=== PATIENT | male | born 1965 | race Caucasian/White ===

== ENCOUNTER 2016-10-13 02:07 | Inpatient (IN) | payer BC ==
[2016-10-13] MEDS ORDERED: Ondansetron 4 MG/2 ML SDV IVPUSH ONE ×2 (02:26→05:07)
[2016-10-13] MEDS ORDERED: Sodium Chloride 0.9% 1,000 ML IV ONE (02:26)
[2016-10-13] MEDS ORDERED: Ketorolac 30 MG/ML SDV IVPUSH ONE (02:26)
--- NOTE | 2016-10-13 02:29 | EDM.PDOC ---
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 Past medical history: As per history of present illness and as reviewed below otherwise noncontributory. Surgical history: As per history of present illness and as reviewed below otherwise noncontributory. Social history: No reported history of drug or alcohol abuse. Family history: As per history of present illness and as reviewed below otherwise noncontributory. Physical exam: HEENT: Atraumatic, normocephalic, pupils reactive, negative for conjunctival pallor or scleral icterus, mucous membranes moist, throat clear, neck supple, nontender, trachea midline. Lungs: Clear to auscultation, breath sounds equal bilaterally, chest nontender. Heart: S1S2, regular, negative for clicks, rubs, or JVD. Abdomen: Soft, nondistended, no localized tenderness. Negative for masses or hepatosplenomegaly. Negative for costovertebral tenderness. Pelvis: Stable nontender. Genitourinary: Deferred. Rectal: Deferred. Extremities: Atraumatic, negative for cords or calf pain. Neurovascular unremarkable. Neuro: Awake, alert, oriented. Cranial nerves II through XII unremarkable. Cerebellum unremarkable. Motor and sensory unremarkable throughout. Exam nonfocal. Diagnostics: CBC CMP amylase lipase troponin UA urine culture blood culture x2 lactic acid CT abdomen and pelvis chest x-ray EKG Therapeutics: Normal saline 1 L bolus Zofran 4 mg IV Toradol 30 mg IV Impression: #1 abdominal pain #2 history of multiple sclerosis Definitive disposition and diagnosis as appropriate pending reevaluation and review of above. 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: Other (see below) Other Treatments ACID CRANE OPERATOR: tramal @ 1am Abdominal Pain Score (Numeric/FACES): 6 - Related Data Allergies Allergy/AdvReac Type Severity Reaction Status Date / Time duloxetine HCl Allergy Mouth Sores Verified 10/13/16 02:11 [From Cymbalta] morphine Allergy Itching Verified 10/13/16 02:11 Sulfa (Sulfonamide Allergy Itching Verified 10/13/16 02:11 Antibiotics) Home Meds: Home Meds Baclofen [Lioresal] 10 mg PO TID 04/18/15 [History] Folic Acid 2 mg PO DAILY 04/18/15 [History] Gabapentin [Neurontin] 100 mg PO TID 04/18/15 [History] LORazepam [Ativan] 2 mg PO ASDIRECTED PRN 04/18/15 [History] Prochlorperazine [Compazine] 10 mg PO Q6H PRN 04/18/15 [History] FLUoxetine [PROzac] 20 mg PO DAILY 04/19/15 [History] Sildenafil Citrate [Viagra] 50 mg PO ASDIRECTED PRN 12/24/15 [History] Cyanocobalamin/FA/Pyridoxine [Folbee] 2.5 mg PO BID 01/11/16 [History] Fingolimod HCl [Gilenya] 1 tab PO DAILY 02/15/16 [History] Omeprazole Magnesium [Prilosec Otc] 1 tab PO DAILY 02/15/16 [History] Ascorbate Calcium [Vitamin C] 1 tab PO DAILY 02/20/16 [History] Ferrous Sulfate [Iron] 1 tab PO DAILY 02/20/16 [History] Lutein/Minerals/Vit A,C & E [Ocuvite] 1 tab PO DAILY 02/20/16 [History] Prochlorperazine [Compazine] 10 mg PO ASDIRECTED PRN 02/20/16 [History] traMADol [Ultram] 50 mg PO ASDIRECTED PRN 02/20/16 [History] Docusate Sodium [Colace] 100 mg PO BID #30 cap 02/24/16 [Rx] Past Medical History HEENT History: Reports: Impaired vision Other HEENT History: wears glasses Cardiovascular History: Reports: None Respiratory History: Reports: None Other Respiratory History: pneumonia Gastrointestinal History: Reports: None, Other (see below) Other Gastrointestinal History: rectal prolapse Genitourinary History: Reports: None Other Musculoskeletal History: trauma right knee with surgery Neurological History: Reports: MS Psychiatric History: Reports: Anxiety, Depression Endocrine/Metabolic History: Reports: None Hematologic History: Reports: None Immunologic History: Reports: None Oncologic (Cancer) History: Reports: None Dermatologic History: Reports: Psoriasis Other Dermatologic History: scalp - Infectious Disease History Infectious Disease History: Reports: Chicken pox - Past Surgical History Head Surgeries/Procedures: Reports: None Cardiovascular Surgical History: Reports: None GI Surgical History: Reports: Colon, Hernia, abdominal, Other (see below) Other GI Surgeries/Procedures: colon surgery Male Surgical History: Reports: None Neurological Surgical History: Reports: None Oncologic Surgical History: Reports: None Social & Family History - Family History Family Medical History: Noncontributory HEENT: Reports: None Cardiac: Reports: None - Tobacco Use Smoking Status *Q: Current Every Day Smoker Years of Tobacco use: 6 Packs/Tins Daily: 0.5 Second Hand Smoke Exposure: No - Caffeine Use Caffeine Use: Reports: Coffee - Recreational Drug Use Recreational Drug Use: No Drug Use in Last 12 Months: No ED ROS GENERAL - Review of Systems Review Of Systems: ROS reveals no pertinent complaints other than HPI. ED EXAM, GENERAL - Physical Exam Exam: See Below (See dictated) Course - Vital Signs Last Recorded V/S: Last Vital Signs Temp 36.7 C 10/13/16 04:32 Pulse 86 10/13/16 04:32 Resp 16 10/13/16 04:32 BP 133/86 10/13/16 04:32 Pulse Ox 97 10/13/16 04:32 - Orders/Labs/Meds Orders: Active Orders 24 hr Category Date Time Status Admission Status [Patient Status] [ADT] Stat ADT 10/13/16 05:07 Active EKG Documentation Completion [RC] STAT Care 10/13/16 02:25 Active Abdomen Pelvis wo Cont [CT] Stat Exams 10/13/16 02:26 Taken Chest 2V [CR] Stat Exams 10/13/16 02:26 Taken CULTURE BLOOD [BC] Stat Lab 10/13/16 03:00 Received CULTURE BLOOD [BC] Stat Lab 10/13/16 03:10 Received CULTURE URINE [RM] Stat Lab 10/13/16 03:36 Received Blood Culture x2 Reflex Set [OM.PC] Stat Oth 10/13/16 02:26 Ordered Medication Orders Sodium Chloride (Normal Saline) 1,000 mls @ 125 mls/hr IV ASDIRECTED EBER Last Admin: 10/13/16 05:17 Dose: 125 mls/hr Labs: Laboratory Tests 10/13/16 10/13/16 10/13/16 Range/Units 02:30 02:30 02:30 WBC 13.74 H (4.0-11.0) K/uL RBC 4.77 (4.50-5.90) M/uL Hgb 14.9 (13.0-17.0) g/dL Hct 43.3 (38.0-50.0) % MCV 90.8 (80.0-98.0) fL MCH 31.2 (27.0-32.0) pg MCHC 34.4 (31.0-37.0) g/dL RDW Std Deviation 43.0 (28.0-62.0) fl RDW Coeff of Berto 13 (11.0-15.0) % Plt Count 237 (150-400) K/uL MPV 9.20 (7.40-12.00) fL Neut % (Auto) 91.5 H (48.0-80.0) % Lymph % (Auto) 2.5 L (16.0-40.0) % Hand % (Auto) 5.5 (0.0-15.0) % Eos % (Auto) 0.4 (0.0-7.0) % Baso % (Auto) 0.1 (0.0-1.5) % Neut # 12.6 H (1.4-5.7) K/uL Lymph # 0.4 L (0.6-2.4) K/uL Hand # 0.8 (0.0-0.8) K/uL Eos # 0.1 (0.0-0.7) K/uL Baso # 0.0 (0.0-0.1) K/uL INR 0.97 (0.86-1.11) Lactate (0.20-2.00) mmol/L Sodium 133 L (136-146) mmol/L Potassium 4.1 (3.5-5.1) mmol/L Chloride 103 (98-110) mmol/L Carbon Dioxide 16 L (21-31) mmol/L BUN 20 (6.0-23.0) mg/dL Creatinine 0.8 (0.6-1.5) mg/dL Est Cr Clr Drug Dosing 111.70 mL/min Estimated GFR (MDRD) > 60.0 ml/min Glucose 164 H (60-110) mg/dL Calcium 9.1 (8.8-10.8) mg/dL Total Bilirubin 0.4 (0.1-1.5) mg/dL AST 34 (5-40) IU/L ALT 45 (8-54) IU/L Alkaline Phosphatase 80 (40-150) Troponin I (0.0-0.29) NG/ML Total Protein 7.2 (6.0-8.0) g/dL Albumin 4.4 (3.5-5.0) g/dL Globulin 2.8 (2.0-3.5) g/dL Albumin/Globulin Ratio 1.6 (1.3-2.8) Amylase 74 (10-90) U/L Lipase 17 (7-80) U/L Urine Color Urine Appearance Urine pH (5.0-8.0) Ur Specific Sutton (1.001-1.035) Urine Protein (NEGATIVE) mg/dL Urine Glucose (UA) (NEGATIVE) mg/dL Urine Ketones (NEGATIVE) mg/dL Urine Occult Blood (NEGATIVE) Urine Nitrite (NEGATIVE) Urine Bilirubin (NEGATIVE) Urine Urobilinogen (<2.0) EU/dL Ur Leukocyte Esterase (NEGATIVE) Urine RBC (0-2/HPF) Urine WBC (0-5/HPF) Ur Epithelial Cells (NONE-FEW) Urine Bacteria (NEGATIVE) Coarse Granular Casts (NEGATIVE) Urine Mucus (NONE-MOD) Urine Opiates Screen (NEGATIVE) Ur Oxycodone Screen (NEGATIVE) Urine Methadone Screen (NEGATIVE) Ur Barbiturates Screen (NEGATIVE) Ur Phencyclidine Scrn (NEGATIVE) Ur Amphetamine Screen (NEGATIVE) U Methamphetamines Scrn (NEGATIVE) U Benzodiazepines Scrn (NEGATIVE) U Cocaine Metab Screen (NEGATIVE) U Marijuana (THC) Screen (NEGATIVE) Blood Type Antibody Screen 10/13/16 10/13/16 10/13/16 Range/Units 02:30 02:30 03:00 WBC (4.0-11.0) K/uL RBC (4.50-5.90) M/uL Hgb (13.0-17.0) g/dL Hct (38.0-50.0) % MCV (80.0-98.0) fL MCH (27.0-32.0) pg MCHC (31.0-37.0) g/dL RDW Std Deviation (28.0-62.0) fl RDW Coeff of Berto (11.0-15.0) % Plt Count (150-400) K/uL MPV (7.40-12.00) fL Neut % (Auto) (48.0-80.0) % Lymph % (Auto) (16.0-40.0) % Hand % (Auto) (0.0-15.0) % Eos % (Auto) (0.0-7.0) % Baso % (Auto) (0.0-1.5) % Neut # (1.4-5.7) K/uL Lymph # (0.6-2.4) K/uL Hand # (0.0-0.8) K/uL Eos # (0.0-0.7) K/uL Baso # (0.0-0.1) K/uL INR (0.86-1.11) Lactate 0.9 (0.20-2.00) mmol/L Sodium (136-146) mmol/L Potassium (3.5-5.1) mmol/L Chloride (98-110) mmol/L Carbon Dioxide (21-31) mmol/L BUN (6.0-23.0) mg/dL Creatinine (0.6-1.5) mg/dL Est Cr Clr Drug Dosing mL/min Estimated GFR (MDRD) ml/min Glucose (60-110) mg/dL Calcium (8.8-10.8) mg/dL Total Bilirubin (0.1-1.5) mg/dL AST (5-40) IU/L ALT (8-54) IU/L Alkaline Phosphatase (40-150) Troponin I < 0.10 (0.0-0.29) NG/ML Total Protein (6.0-8.0) g/dL Albumin (3.5-5.0) g/dL Globulin (2.0-3.5) g/dL Albumin/Globulin Ratio (1.3-2.8) Amylase (10-90) U/L Lipase (7-80) U/L Urine Color Urine Appearance Urine pH (5.0-8.0) Ur Specific Sutton (1.001-1.035) Urine Protein (NEGATIVE) mg/dL Urine Glucose (UA) (NEGATIVE) mg/dL Urine Ketones (NEGATIVE) mg/dL Urine Occult Blood (NEGATIVE) Urine Nitrite (NEGATIVE) Urine Bilirubin (NEGATIVE) Urine Urobilinogen (<2.0) EU/dL Ur Leukocyte Esterase (NEGATIVE) Urine RBC (0-2/HPF) Urine WBC (0-5/HPF) Ur Epithelial Cells (NONE-FEW) Urine Bacteria (NEGATIVE) Coarse Granular Casts (NEGATIVE) Urine Mucus (NONE-MOD) Urine Opiates Screen (NEGATIVE) Ur Oxycodone Screen (NEGATIVE) Urine Methadone Screen (NEGATIVE) Ur Barbiturates Screen (NEGATIVE) Ur Phencyclidine Scrn (NEGATIVE) Ur Amphetamine Screen (NEGATIVE) U Methamphetamines Scrn (NEGATIVE) U Benzodiazepines Scrn (NEGATIVE) U Cocaine Metab Screen (NEGATIVE) U Marijuana (THC) Screen (NEGATIVE) Blood Type O NEGATIVE Antibody Screen NEGATIVE 10/13/16 10/13/16 Range/Units 03:36 03:36 WBC (4.0-11.0) K/uL RBC (4.50-5.90) M/uL Hgb (13.0-17.0) g/dL Hct (38.0-50.0) % MCV (80.0-98.0) fL MCH (27.0-32.0) pg MCHC (31.0-37.0) g/dL RDW Std Deviation (28.0-62.0) fl RDW Coeff of Berto (11.0-15.0) % Plt Count (150-400) K/uL MPV (7.40-12.00) fL Neut % (Auto) (48.0-80.0) % Lymph % (Auto) (16.0-40.0) % Hand % (Auto) (0.0-15.0) % Eos % (Auto) (0.0-7.0) % Baso % (Auto) (0.0-1.5) % Neut # (1.4-5.7) K/uL Lymph # (0.6-2.4) K/uL Hand # (0.0-0.8) K/uL Eos # (0.0-0.7) K/uL Baso # (0.0-0.1) K/uL INR (0.86-1.11) Lactate (0.20-2.00) mmol/L Sodium (136-146) mmol/L Potassium (3.5-5.1) mmol/L Chloride (98-110) mmol/L Carbon Dioxide (21-31) mmol/L BUN (6.0-23.0) mg/dL Creatinine (0.6-1.5) mg/dL Est Cr Clr Drug Dosing mL/min Estimated GFR (MDRD) ml/min Glucose (60-110) mg/dL Calcium (8.8-10.8) mg/dL Total Bilirubin (0.1-1.5) mg/dL AST (5-40) IU/L ALT (8-54) IU/L Alkaline Phosphatase (40-150) Troponin I (0.0-0.29) NG/ML Total Protein (6.0-8.0) g/dL Albumin (3.5-5.0) g/dL Globulin (2.0-3.5) g/dL Albumin/Globulin Ratio (1.3-2.8) Amylase (10-90) U/L Lipase (7-80) U/L Urine Color YELLOW Urine Appearance CLEAR Urine pH 5.0 (5.0-8.0) Ur Specific Sutton >= 1.030 (1.001-1.035) Urine Protein NEGATIVE (NEGATIVE) mg/dL Urine Glucose (UA) NEGATIVE (NEGATIVE) mg/dL Urine Ketones 15 H (NEGATIVE) mg/dL Urine Occult Blood NEGATIVE (NEGATIVE) Urine Nitrite NEGATIVE (NEGATIVE) Urine Bilirubin NEGATIVE (NEGATIVE) Urine Urobilinogen 0.2 (<2.0) EU/dL Ur Leukocyte Esterase NEGATIVE (NEGATIVE) Urine RBC 0-1 (0-2/HPF) Urine WBC 0-3 (0-5/HPF) Ur Epithelial Cells RARE (NONE-FEW) Urine Bacteria RARE (NEGATIVE) Coarse Granular Casts 0-1 (NEGATIVE) Urine Mucus LIGHT (NONE-MOD) Urine Opiates Screen POSITIVE (NEGATIVE) Ur Oxycodone Screen NEGATIVE (NEGATIVE) Urine Methadone Screen NEGATIVE (NEGATIVE) Ur Barbiturates Screen NEGATIVE (NEGATIVE) Ur Phencyclidine Scrn NEGATIVE (NEGATIVE) Ur Amphetamine Screen NEGATIVE (NEGATIVE) U Methamphetamines Scrn NEGATIVE (NEGATIVE) U Benzodiazepines Scrn NEGATIVE (NEGATIVE) U Cocaine Metab Screen NEGATIVE (NEGATIVE) U Marijuana (THC) Screen NEGATIVE (NEGATIVE) Blood Type Antibody Screen Meds: Medications Generic Name Dose Route Start Last Admin Trade Name Freq PRN Reason Stop Dose Admin Sodium Chloride 1,000 mls @ 125 mls/hr 10/13/16 05:15 10/13/16 05:17 Normal Saline IV 125 mls/hr ASDIRECTED EBER Administration Discontinued Medications Generic Name Dose Route Start Last Admin Trade Name Farzana PRN Reason Stop Dose Admin Hydromorphone HCl 1 mg 10/13/16 05:07 10/13/16 05:16 Dilaudid IVPUSH 10/13/16 05:08 1 mg ONETIME ONE Administration Sodium Chloride 1,000 mls @ 999 mls/hr 10/13/16 02:26 10/13/16 02:35 Normal Saline IV 10/13/16 03:26 999 mls/hr STAT ONE Administration Ketorolac Tromethamine 30 mg 10/13/16 02:26 10/13/16 02:33 Toradol IVPUSH 10/13/16 02:27 30 mg ONETIME ONE Administration Ondansetron HCl 4 mg 10/13/16 02:26 10/13/16 02:34 Zofran IVPUSH 10/13/16 02:27 4 mg ONETIME ONE Administration Ondansetron HCl 4 mg 10/13/16 05:07 10/13/16 05:16 Zofran IVPUSH 10/13/16 05:08 4 mg ONETIME ONE Administration Departure - Departure Time of Disposition: 05:23 Disposition: Admitted As Inpatient 68 Condition: good Clinical Impression: Abdominal pain, Leukocytosis - My Orders Last 24 Hours: My Active Orders 10/13/16 02:25 EKG Documentation Completion [RC] STAT 10/13/16 02:26 Abdomen Pelvis wo Cont [CT] Stat Chest 2V [CR] Stat Blood Culture x2 Reflex Set [OM.PC] Stat 10/13/16 03:00 CULTURE BLOOD [BC] Stat 10/13/16 03:10 CULTURE BLOOD [BC] Stat 10/13/16 03:36 CULTURE URINE [RM] Stat 10/13/16 05:07 Admission Status [Patient Status] [ADT] Stat - Assessment/Plan Last 24 Hours: My Active Orders 10/13/16 02:25 EKG Documentation Completion [RC] STAT 10/13/16 02:26 Abdomen Pelvis wo Cont [CT] Stat Chest 2V [CR] Stat Blood Culture x2 Reflex Set [OM.PC] Stat 10/13/16 03:00 CULTURE BLOOD [BC] Stat 10/13/16 03:10 CULTURE BLOOD [BC] Stat 10/13/16 03:36 CULTURE URINE [RM] Stat 10/13/16 05:07 Admission Status [Patient Status] [ADT] Stat
[2016-10-13 03:13] LABS: CHLORIDE,CL 103 mmol/L (98-110); SODIUM,NA 133 mmol/L (136-146)
[2016-10-13] MEDS ORDERED: HYDROmorphone 1 MG/ML Syringe IVPUSH ONE (05:07)
[2016-10-13] MEDS ORDERED: Sodium Chloride 0.9% 1,000 ML IV SCH (05:15)
[2016-10-13] MEDS ORDERED: Ciprofloxacin in D5W 400 MG in Premix Bag 1 BAG IV SCH ×2 (06:00)
[2016-10-13] MEDS: Sodium Chloride 0.45% 1,000 ML IV SCH ×2 (06:13→15:18)
[2016-10-13] MEDS ORDERED: metroNIDAZOLE/Normal Saline 500 MG in Premix Bag 1 BAG IV SCH (07:00)
[2016-10-13] MEDS ORDERED: Enoxaparin 40 MG/0.4 ML Syringe SUBCUT SCH (09:00)
[2016-10-13] MEDS: HYDROmorphone 1 MG/ML Syringe IVPUSH PRN ×4 (09:11→16:48)
--- NOTE | 2016-10-13 10:09 | PCM.HP ---
H&P History of Present Illness - General Date of Service: 10/13/16 Source of Information: Patient Abdominal Pain Score (Numeric/FACES): 1 - Related Data Allergies/Adverse Reactions: Allergies Allergy/AdvReac Type Severity Reaction Status Date / Time duloxetine HCl Allergy Mouth Sores Verified 10/13/16 02:11 [From Cymbalta] morphine Allergy Itching Verified 10/13/16 02:11 Sulfa (Sulfonamide Allergy Itching Verified 10/13/16 02:11 Antibiotics) Home Medications: Home Meds Baclofen [Lioresal] 10 mg PO TID 04/18/15 [History] Folic Acid 2 mg PO DAILY 04/18/15 [History] Gabapentin [Neurontin] 100 mg PO TID 04/18/15 [History] LORazepam [Ativan] 2 mg PO ASDIRECTED PRN 04/18/15 [History] Prochlorperazine [Compazine] 10 mg PO Q6H PRN 04/18/15 [History] FLUoxetine [PROzac] 20 mg PO DAILY 04/19/15 [History] Sildenafil Citrate [Viagra] 50 mg PO ASDIRECTED PRN 12/24/15 [History] Cyanocobalamin/FA/Pyridoxine [Folbee] 2.5 mg PO BID 01/11/16 [History] Fingolimod HCl [Gilenya] 1 tab PO DAILY 02/15/16 [History] Omeprazole Magnesium [Prilosec Otc] 1 tab PO DAILY 02/15/16 [History] Ascorbate Calcium [Vitamin C] 1 tab PO DAILY 02/20/16 [History] Ferrous Sulfate [Iron] 1 tab PO DAILY 02/20/16 [History] Lutein/Minerals/Vit A,C & E [Ocuvite] 1 tab PO DAILY 02/20/16 [History] Prochlorperazine [Compazine] 10 mg PO ASDIRECTED PRN 02/20/16 [History] traMADol [Ultram] 50 mg PO ASDIRECTED PRN 02/20/16 [History] Docusate Sodium [Colace] 100 mg PO BID #30 cap 02/24/16 [Rx] Past Medical History HEENT History: Reports: Impaired vision Other HEENT History: wears glasses Cardiovascular History: Reports: None Respiratory History: Reports: None Other Respiratory History: pneumonia Gastrointestinal History: Reports: None, Other (see below) Other Gastrointestinal History: rectal prolapse Genitourinary History: Reports: None Other Musculoskeletal History: trauma right knee with surgery Neurological History: Reports: MS Psychiatric History: Reports: Anxiety, Depression Endocrine/Metabolic History: Reports: None Hematologic History: Reports: None Immunologic History: Reports: None Oncologic (Cancer) History: Reports: None Dermatologic History: Reports: Psoriasis Other Dermatologic History: scalp - Infectious Disease History Infectious Disease History: Reports: Chicken pox - Past Surgical History Head Surgeries/Procedures: Reports: None Cardiovascular Surgical History: Reports: None GI Surgical History: Reports: Colon, Hernia, abdominal, Other (see below) Other GI Surgeries/Procedures: colon surgery Male Surgical History: Reports: None Neurological Surgical History: Reports: None Oncologic Surgical History: Reports: None Social & Family History - Family History Family Medical History: Noncontributory HEENT: Reports: None Cardiac: Reports: None - Tobacco Use Smoking Status *Q: Current Every Day Smoker Years of Tobacco use: 6 Packs/Tins Daily: 0.5 Second Hand Smoke Exposure: No - Caffeine Use Caffeine Use: Reports: Coffee, Soda - Recreational Drug Use Recreational Drug Use: No Drug Use in Last 12 Months: No Exam - Vital Signs Vital Signs: Last Vital Signs Temp 98.6 F 10/13/16 06:00 Pulse 64 10/13/16 05:52 Resp 18 10/13/16 06:00 BP 125/87 10/13/16 06:00 Pulse Ox 95 10/13/16 06:00 Weight: 78 kg - Patient Data Result Diagrams: 10/13/16 02:30 10/13/16 02:30 *Q Meaningful Use (ADM) - VTE *Q VTE Criteria *Q: - Stroke *Q Stroke Criteria *Q: - AMI *Q AMI Criteria *Q: Orders Last 24hrs: Active Orders 24 hr Category Date Time Status Activity as Tolerated [RC] .Routine Care 10/13/16 05:56 Active Ciprofloxacin in D5W [Cipro in D5W 400 MG/200 ML] 400 Med 10/13/16 06:00 Active mg Premix Bag 1 bag IV Q12H Enoxaparin [Lovenox] Med 10/13/16 09:00 Active 40 mg SUBCUT Q24H HYDROmorphone [Dilaudid] Med 10/13/16 07:00 Active 0.5 mg IVPUSH Q2H PRN Sodium Chloride 0.45% 1,000 ml Med 10/13/16 06:00 Active IV ASDIRECTED metroNIDAZOLE/Normal Saline [Flagyl 500 MG in NS 100 ML Med 10/13/16 07:00 Active ] 500 mg Premix Bag 1 bag IV Q8H Medication Orders Enoxaparin Sodium (Lovenox) 40 mg SUBCUT Q24H [facility] Last Admin: 10/13/16 09:12 Dose: 40 mg Hydromorphone HCl (Dilaudid) 0.5 mg IVPUSH Q2H PRN PRN Reason: Pain Last Admin: 10/13/16 09:11 Dose: 0.5 mg Ciprofloxacin/Dextrose 400 mg/ (Premix) 200 mls @ 200 mls/hr IV Q12H [facility] Last Admin: 10/13/16 06:13 Dose: 200 mls/hr Metronidazole 500 mg/ Premix 100 mls @ 100 mls/hr IV Q8H [facility] Last Admin: 10/13/16 07:28 Dose: 100 mls/hr Sodium Chloride (Sodium Chloride 0.45%) 1,000 mls @ 150 mls/hr IV ASDIRECTED [facility] Last Admin: 10/13/16 06:13 Dose: 150 mls/hr
[2016-10-13] MEDS ORDERED: Benzocaine 20% Topical Spray UD MUCMEM ONE (10:35)
--- NOTE | 2016-10-13 12:09 | PCM.CONS ---
Addendum entered and electronically signed by Lev Rodriguez MD 10/13/16 12: 53: Patient seen and examined with Dr. Schofield. He is well known to me from care throughout the years. Most recent procedures include sigmoid resection with primary anastomosis 02/24 and laparoscopic incisional hernia repain in [place] . Presented yesterday to ER with increasing abdominal pain and nausea but no vomiting. BM yesterday, none today. Did pass gas earlier this morning but none since about 0730 hours. Is required parenteral analgesics which also cause nausea. CT scan last night suggests an internal hernia. Preliminary report reviewed. Upon personal review of the CT scan, I agree it is worrisome for an internal hernia. WBC today 13K with 91% segs. Abdomen is soft and not distended but with hyperactive BS with high pitched bowel sounds. There is no rebound tenderness or peritoneal signs at this time. IMP: Probable partial small obstruction with possible internal hernia. RECOMMENDATIONS: Given his elevated WBC, persistent pain, lack of flatus or BM I recommend transfer to a facility that does bariatric surgery. It would be best to transfer him back to [facility] in [place] in the event that he requires surgical intervention. That was the last place he had a surgical procedure done. Original Note: H&P History of Present Illness - General Date of Service: 10/13/16 Admit Problem/Dx: Abdominal pain Source of Information: Patient History Limitations: Reports: No limitations - History of Present Illness Initial Comments - Free Text/Narative: Patient states he has been having pain since yesterday afternoon. THe pain is in the upper quadrants of the abdomen. The pain is sharp, progressive and no constant. He has nausea and dry heaves but no emesis. He is passing flatus and last BM was yesterday. He unable to tolerate PO intake. No fevers or chills. No previous episodes prior to this. PSH includes gastric bypass in 2004, inguinal hernia on the left, and ventral hernia repair recent at the end of . Ventral hernia was repaired with mesh. abdominal xray reveals air-fluild levels and CT scan of abdomen reveals dilated small bowel and normal colon. Patient last ate yesterday afternoon. Improves with: Reports: None Worsens with: Reports: None Associated Symptoms: Reports: no other symptoms Abdominal Pain Score (Numeric/FACES): 1 - Related Data Allergies/Adverse Reactions: Allergies Allergy/AdvReac Type Severity Reaction Status Date / Time duloxetine HCl Allergy Mouth Sores Verified 10/13/16 02:11 [From Cymbalta] morphine Allergy Itching Verified 10/13/16 02:11 Sulfa (Sulfonamide Allergy Itching Verified 10/13/16 02:11 Antibiotics) Home Medications: Home Meds Baclofen [Lioresal] 10 mg PO TID 04/18/15 [History] Folic Acid 2 mg PO DAILY 04/18/15 [History] Gabapentin [Neurontin] 100 mg PO TID 04/18/15 [History] LORazepam [Ativan] 2 mg PO ASDIRECTED PRN 04/18/15 [History] Prochlorperazine [Compazine] 10 mg PO Q6H PRN 04/18/15 [History] FLUoxetine [PROzac] 20 mg PO DAILY 04/19/15 [History] Sildenafil Citrate [Viagra] 50 mg PO ASDIRECTED PRN 12/24/15 [History] Cyanocobalamin/FA/Pyridoxine [Folbee] 2.5 mg PO BID 01/11/16 [History] Fingolimod HCl [Gilenya] 1 tab PO DAILY 02/15/16 [History] Omeprazole Magnesium [Prilosec Otc] 1 tab PO DAILY 02/15/16 [History] Ascorbate Calcium [Vitamin C] 1 tab PO DAILY 02/20/16 [History] Ferrous Sulfate [Iron] 1 tab PO DAILY 02/20/16 [History] Lutein/Minerals/Vit A,C & E [Ocuvite] 1 tab PO DAILY 02/20/16 [History] Prochlorperazine [Compazine] 10 mg PO ASDIRECTED PRN 02/20/16 [History] traMADol [Ultram] 50 mg PO ASDIRECTED PRN 02/20/16 [History] Docusate Sodium [Colace] 100 mg PO BID #30 cap 02/24/16 [Rx] Past Medical History HEENT History: Reports: Impaired vision Other HEENT History: wears glasses Cardiovascular History: Reports: None Respiratory History: Reports: None Other Respiratory History: pneumonia Gastrointestinal History: Reports: None, Other (see below) Other Gastrointestinal History: rectal prolapse Genitourinary History: Reports: None Other Musculoskeletal History: trauma right knee with surgery Neurological History: Reports: MS Psychiatric History: Reports: Anxiety, Depression Endocrine/Metabolic History: Reports: None Hematologic History: Reports: None Immunologic History: Reports: None Oncologic (Cancer) History: Reports: None Dermatologic History: Reports: Psoriasis Other Dermatologic History: scalp - Infectious Disease History Infectious Disease History: Reports: Chicken pox - Past Surgical History Head Surgeries/Procedures: Reports: None Cardiovascular Surgical History: Reports: None GI Surgical History: Reports: Colon, Hernia, abdominal, Other (see below) Other GI Surgeries/Procedures: colon surgery Male Surgical History: Reports: None Neurological Surgical History: Reports: None Oncologic Surgical History: Reports: None Social & Family History - Family History Family Medical History: Noncontributory HEENT: Reports: None Cardiac: Reports: None - Tobacco Use Smoking Status *Q: Current Every Day Smoker Years of Tobacco use: 6 Packs/Tins Daily: 0.5 Second Hand Smoke Exposure: No - Caffeine Use Caffeine Use: Reports: Coffee, Soda - Recreational Drug Use Recreational Drug Use: No Drug Use in Last 12 Months: No H&P Review of Systems - Review of Systems: Review Of Systems: See Below General: Reports: no symptoms HEENT: Reports: no symptoms Pulmonary: Reports: no symptoms Cardiovascular: Reports: no symptoms Gastrointestinal: Reports: Abdominal pain, Diarrhea, Decreased appetite, Flatus , Nausea, Other Genitourinary: Reports: no symptoms Musculoskeletal: Reports: no symptoms Skin: Reports: no symptoms Psychiatric: Reports: no symptoms (dry heaves ) Neurological: Reports: no symptoms Exam - Exam Exam: See Below - Vital Signs Vital Signs: Last Vital Signs Temp 37.0 C 10/13/16 06:00 Pulse 64 10/13/16 05:52 Resp 18 10/13/16 06:00 BP 125/87 10/13/16 06:00 Pulse Ox 95 10/13/16 06:00 Weight: 78 kg - Exam General: alert, oriented, cooperative Neck: trachea midline, full range of motion Lungs: Clear to auscultation, Normal respiratory effort Cardiovascular: regular rate, regular rhythm, normal S1, normal S2 Abdomen: soft, tenderness (tenderness in the upper quadrant more in the left; no guarding, no rebound tenderess, no peritoneal signs, mid line incision from previous surgery is well healed without signs of infection, [place]) (Male) Exam: No hernia, Normal inspection Extremities: normal inspection Peripheral Pulses: 2+: radial (L), radial (R), posterior tibial (L), posterior tibial (R), dorsalis pedis (L), dorsalis pedis (R) Skin: warm - Patient Data Result Diagrams: 10/13/16 02:30 10/13/16 02:30 Consult PN Assessment/Plan Procedures: Procedures COLONOSCOPY AND BIOPSY (01/12/16) COMPLETE CBC AUTOMATED (02/27/16) CT ABD & PELV W/CONTRAST (07/27/16) EMERGENCY DEPT VISIT (12/24/15) MRI ABDOMEN W/O & W/DYE (08/03/16) ROUTINE VENIPUNCTURE (02/27/16) THER/PROPH/DIAG INJ IV PUSH (12/24/15) (1) Abdominal pain SNOMED Code(s): 26855193 Code(s): R10.9 - UNSPECIFIED ABDOMINAL PAIN Current Visit: Yes Qualifiers: Abdominal location: upper abdomen, unspecified Qualified Code(s): R10.10 - Upper abdominal pain, unspecified Assessment:: Mr Larios is a 51 yro male with a h/o MS, previous gastric bypass, inguinal hernia repair, and recent ventral hernia repair with mesh in 08/2016, whom presents with abdominal pain and images suggestive of bowel obstruction possibly due internal hernia. Problem List Initiated/Reviewed/Updated: Yes Plan: 1. abdominal pain likely 2/2 internal hernia. Recommend the following - NPO - FLuid resuscitation - Daily labs for possible electrolyte imbalance - replace electrolyte PRN - if patient has increasing abdominal pain, N and V, recommend placement of NGT, confirmed with xray and on LWIS - For nausea: PRN zofran - if patient's pain does not resolve in 2-3 days, may consider possibly transfer to higher care facility. 2. Continue cares per primary team.
[2016-10-13] MEDS ORDERED: Ondansetron 4 MG/2 ML SDV IVPUSH PRN (12:42)
[2016-10-13] MEDS ORDERED: Ondansetron 4 MG/2 ML SDV ONE (12:46)
[2016-10-13 14:40] VITALS: BP 145/85
--- NOTE | 2016-10-13 18:34 | PCM.HP ---
H&P History of Present Illness - General Date of Service: 10/13/16 Admit Problem/Dx: abdominal pain Source of Information: Patient History Limitations: Reports: No limitations - History of Present Illness Initial Comments - Free Text/Narative: Patient 51 years old man presented to emergency room because of the abdomen .Pain started around 5 PM yesterday, it was severe 7 in 10 in intensity squeezing associated with nausea. The pain was localized on subdiaphragmatic left and right. And later the pain was localized mostly at the cystic point, was squeezing-like sensation .The patient had history of gastric bypass done in 2008 at [facility] now. Patient denies vomiting, no bowel movementssince yesterday morning , but was passing flatus this am . She had surgery for rectal prolapse on February 23/2016 and his sigmoid was removed. Surgery was done at [facility] [place] the fall of 2015 he developed the abdominal ventral hernia , the size of a softball and the he had the surgery on September 03 2016@[facility] in [facility] , was done laparoscopic, by Dr. Smith He was diagnosed with multiple sclerosis in 2005 and since he is on Gelenia which causes him to have a mild increase in his WBC as per patient. Onset of Symptoms: Reports: gradual Duration of Symptoms: Reports: Day(s): Location: Reports: abdomen Quality: Reports: Other (squeezing) Abdominal Pain Score (Numeric/FACES): 1 - Related Data Allergies/Adverse Reactions: Allergies Allergy/AdvReac Type Severity Reaction Status Date / Time duloxetine HCl Allergy Mouth Sores Verified 10/13/16 02:11 [From Cymbalta] morphine Allergy Itching Verified 10/13/16 02:11 Sulfa (Sulfonamide Allergy Itching Verified 10/13/16 02:11 Antibiotics) Home Medications: Home Meds Baclofen [Lioresal] 10 mg PO TID 04/18/15 [History] Folic Acid 2 mg PO DAILY 04/18/15 [History] Gabapentin [Neurontin] 100 mg PO TID 04/18/15 [History] LORazepam [Ativan] 2 mg PO ASDIRECTED PRN 04/18/15 [History] Prochlorperazine [Compazine] 10 mg PO Q6H PRN 04/18/15 [History] FLUoxetine [PROzac] 20 mg PO DAILY 04/19/15 [History] Sildenafil Citrate [Viagra] 50 mg PO ASDIRECTED PRN 12/24/15 [History] Cyanocobalamin/FA/Pyridoxine [Folbee] 2.5 mg PO BID 01/11/16 [History] Fingolimod HCl [Gilenya] 1 tab PO DAILY 02/15/16 [History] Omeprazole Magnesium [Prilosec Otc] 1 tab PO DAILY 02/15/16 [History] Ascorbate Calcium [Vitamin C] 1 tab PO DAILY 02/20/16 [History] Ferrous Sulfate [Iron] 1 tab PO DAILY 02/20/16 [History] Lutein/Minerals/Vit A,C & E [Ocuvite] 1 tab PO DAILY 02/20/16 [History] Prochlorperazine [Compazine] 10 mg PO ASDIRECTED PRN 02/20/16 [History] traMADol [Ultram] 50 mg PO ASDIRECTED PRN 02/20/16 [History] Docusate Sodium [Colace] 100 mg PO BID #30 cap 02/24/16 [Rx] Past Medical History HEENT History: Reports: Impaired vision Other HEENT History: wears glasses Cardiovascular History: Reports: None Respiratory History: Reports: None Other Respiratory History: pneumonia Gastrointestinal History: Reports: None, Other (see below) Other Gastrointestinal History: rectal prolapse Genitourinary History: Reports: None Other Musculoskeletal History: trauma right knee with surgery Neurological History: Reports: MS Psychiatric History: Reports: Anxiety, Depression Endocrine/Metabolic History: Reports: None Hematologic History: Reports: None Immunologic History: Reports: None Oncologic (Cancer) History: Reports: None Dermatologic History: Reports: Psoriasis Other Dermatologic History: scalp - Infectious Disease History Infectious Disease History: Reports: Chicken pox - Past Surgical History Head Surgeries/Procedures: Reports: None Cardiovascular Surgical History: Reports: None GI Surgical History: Reports: Colon, Hernia, abdominal, Other (see below) Other GI Surgeries/Procedures: colon surgery Male Surgical History: Reports: None Neurological Surgical History: Reports: None Oncologic Surgical History: Reports: None Social & Family History - Family History Family Medical History: Noncontributory HEENT: Reports: None Cardiac: Reports: None - Tobacco Use Smoking Status *Q: Current Every Day Smoker Years of Tobacco use: 6 Packs/Tins Daily: 0.5 Second Hand Smoke Exposure: No - Caffeine Use Caffeine Use: Reports: Coffee, Soda - Recreational Drug Use Recreational Drug Use: No Drug Use in Last 12 Months: No H&P Review of Systems - Review of Systems: Review Of Systems: See Below General: Reports: no symptoms HEENT: Reports: no symptoms Pulmonary: Reports: no symptoms Cardiovascular: Reports: no symptoms Gastrointestinal: Reports: Abdominal pain, Flatus, Nausea Genitourinary: Reports: no symptoms Musculoskeletal: Reports: no symptoms Skin: Reports: no symptoms Psychiatric: Reports: no symptoms Neurological: Reports: no symptoms Hematologic/Lymphatic: Reports: no symptoms Immunologic: Reports: no symptoms Exam - Exam Exam: See Below - Vital Signs Vital Signs: Last Vital Signs Temp 99.2 F 10/13/16 14:35 Pulse 90 10/13/16 14:35 Resp 16 10/13/16 14:35 BP 145/85 H 10/13/16 14:35 Pulse Ox 95 10/13/16 14:35 Weight: 171 lb 15.369 oz - Exam General: alert, oriented HEENT: Conjunctiva clear, EACs clear, Hearing intact, Mucosa moist & pink Neck: supple, trachea midline Lungs: Clear to auscultation, Normal respiratory effort Cardiovascular: regular rate, regular rhythm, normal S1, normal S2 Abdomen: hyperactive bowel sounds. No: organomegaly, peritoneal signs, distention, guarding, rigidity, rebound - Patient Data Result Diagrams: 10/13/16 02:30 10/13/16 02:30 EKG INTERPRETATION EKG Date: 10/13/16 Rhythm: NSR *Q Meaningful Use (ADM) - VTE *Q VTE Criteria *Q: - Stroke *Q Stroke Criteria *Q: - AMI *Q AMI Criteria *Q: - Problem List (1) Internal hernia SNOMED Code(s): 62243499 ICD Code: K45.8 - OTH ABDOMINAL HERNIA WITHOUT OBSTRUCTION OR GANGRENE Status: Acute (2) Multiple sclerosis SNOMED Code(s): 08715005 ICD Code: G35 - MULTIPLE SCLEROSIS Status: Acute (3) Abdominal pain SNOMED Code(s): 89911454 ICD Code: R10.9 - UNSPECIFIED ABDOMINAL PAIN Status: Acute Qualifiers: Abdominal location: upper abdomen, unspecified Qualified Code(s): R10.10 - Upper abdominal pain, unspecified (4) Leukocytosis SNOMED Code(s): 561655252, 676228185 ICD Code: D72.829 - ELEVATED WHITE BLOOD CELL COUNT, UNSPECIFIED Status: Acute (5) Status post colon resection SNOMED Code(s): 506129296, 30143666, 169377273 ICD Code: Z90.49 - ACQUIRED ABSENCE OF OTHER SPECIFIED PARTS OF DIGESTIVE TRACT Status: Acute (6) Complications of gastric bypass surgery SNOMED Code(s): 34297361 ICD Code: K91.89 - OTH POSTPROCEDURAL COMPLICATIONS AND DISORDERS OF DGSTV SYS; Y83.2 - ANASTOMOS,BYPASS OR GRFT CAUSE ABN REACT/COMPL, W/O MISADVNT Status: Acute (7) Status post repair of ventral hernia SNOMED Code(s): 308923079 ICD Code: Z98.890 - OTHER SPECIFIED POSTPROCEDURAL STATES; Z87.19 - PERSONAL HISTORY OF OTHER DISEASES OF THE DIGESTIVE SYSTEM Status: Acute Problem List Initiated/Reviewed/Updated: Yes Orders Last 24hrs: Active Orders 24 hr Category Date Time Status Activity as Tolerated [RC] .Routine Care 10/13/16 05:56 Active Nasogastric Tube Management [Gastrointestinal Tube Mgmt Care 10/13/16 10:34 Active ] [RC] ASDIRECTED Ready for Discharge [RC] PER UNIT ROUTINE Care 10/13/16 17:42 Active Ciprofloxacin in D5W [Cipro in D5W 400 MG/200 ML] 400 Med 10/13/16 06:00 Active mg Premix Bag 1 bag IV Q12H Enoxaparin [Lovenox] Med 10/13/16 09:00 Active 40 mg SUBCUT Q24H HYDROmorphone [Dilaudid] Med 10/13/16 07:00 Active 0.5 mg IVPUSH Q2H PRN Ondansetron [Zofran] Med 10/13/16 12:42 Active 4 mg IVPUSH Q6H PRN Sodium Chloride 0.45% 1,000 ml Med 10/13/16 06:00 Active IV ASDIRECTED metroNIDAZOLE/Normal Saline [Flagyl 500 MG in NS 100 ML Med 10/13/16 07:00 Active ] 500 mg Premix Bag 1 bag IV Q8H Nasogastric Orogastric Tube Insertion [OM.PC] Stat Oth 10/13/16 10:33 Ordered Medication Orders Enoxaparin Sodium (Lovenox) 40 mg SUBCUT Q24H [facility] Last Admin: 10/13/16 09:12 Dose: 40 mg Hydromorphone HCl (Dilaudid) 0.5 mg IVPUSH Q2H PRN PRN Reason: Pain Last Admin: 10/13/16 16:48 Dose: 0.5 mg Admin: 10/13/16 14:32 Dose: 0.5 mg Admin: 10/13/16 11:41 Dose: 0.5 mg Admin: 10/13/16 09:11 Dose: 0.5 mg Ciprofloxacin/Dextrose 400 mg/ (Premix) 200 mls @ 200 mls/hr IV Q12H [facility] Last Admin: 10/13/16 06:13 Dose: 200 mls/hr Metronidazole 500 mg/ Premix 100 mls @ 100 mls/hr IV Q8H [facility] Last Admin: 10/13/16 07:28 Dose: 100 mls/hr Sodium Chloride (Sodium Chloride 0.45%) 1,000 mls @ 150 mls/hr IV ASDIRECTED [facility] Last Admin: 10/13/16 15:18 Dose: 150 mls/hr Infusion: 10/13/16 12:54 Dose: 150 mls/hr Admin: 10/13/16 06:13 Dose: 150 mls/hr Ondansetron HCl (Zofran) 4 mg IVPUSH Q6H PRN PRN Reason: Nausea/Vomiting Last Admin: 10/13/16 12:48 Dose: [address] of the abdomen showed dilated small bowel loops measure up to 3.5 cm . There is swirling of the mesentery in the right mid abdomen. It begins of RDS and bowel wall thickening and mesenteric edema. Findings worrisome for small bowel obstruction possible internal hernia. Assessment and plan Abdominal pain possible internal hernia - will admit patient to [facility] , surgery consult , will start patient on prophylactic antib treatment , metronidazole and ciprofloxacin serial abdominal exam Multiple sclerosis - stable -continue patient on Gelenia. DVt prof - heparin sq DISCARGE summary Patient had surgery consult and was recommended patient to be transferred to a center where they have Bariatric Surgery. His abdominal pain was progressively worsening. I have called [facility] and and there was no bariatric surgeon front facer. I was recommended by Dr. Tai surgeon front facer at [facility] in [facility] to call [facility] to see if they have Bariatric surgeon front facer. At [facility] I was told there is no bariatric surgeon front facer and the surgeon front facer recommended me to call [facility] in [place]. I have discussed patient with Bariatric surgeon front facer at [facility] in [place] , Dr. Truman Vazquez and he recommended to sent him his CT abdomen to review through [facility]. He reviewed it and recommended patient transfer by helicopter . Patient agree with transfer and was transfered around 4 pm to [facility]
--- NOTE | 2016-10-15 17:17 | CR ---
EXAM DATE: 10/13/16 PATIENT'S AGE: 51 Patient: VINNY GIBSON Facility: [place], [place] Site . Site : 1965 Study: XRay Chest [id number]/4/2017 3:33:22 AM Ordering Physician: Kelvin Brandt Final Report: INDICATION: PAIN TECHNIQUE: Chest 2 views. COMPARISON: 04/18/15 FINDINGS: Cardiovascular and mediastinum: Heart size and vasculature are normal in caliber and appearance. Mediastinum is within normal limits. Lungs and pleural spaces: Lungs are clear. No sign of infiltrate or mass. No sign of pleural effusion. No pneumothorax. Bones and soft tissues: No significant findings. IMPRESSION: Unremarkable chest. Dictated by: Hipolito Barnett MD @ 10/13/2016 03:38:59 (Electronic Signature) Report Signed by Proxy and Original Signed Document filed in the Medical Record. [facility]
--- NOTE | 2016-10-17 19:01 | CT ---
EXAM DATE: 10/13/16 PATIENT'S AGE: 51 Patient: VINNY GIBSON Facility: [facility] Site . Site : 1965 Study: CT-Abdomen/Pelvis [id number]/4/2017 3:39:06 AM Ordering Physician: Kelvin Brandt Final Report: INDICATION: Abdominal pain. Status post mesh placement 1 month prior TECHNIQUE: CT abdomen and pelvis without contrast. COMPARISON: FINDINGS: Lower chest: Unremarkable. Liver: Unremarkable. Spleen: Unremarkable. Pancreas: Unremarkable. Gallbladder and bile ducts: Unremarkable. Kidneys: Unremarkable. No kidney or ureteral stones and no hydronephrosis. Adrenal glands: Unremarkable. GI tract: Status small bowel loops measure up to 3.5 centimeters. Swirling of the small bowel mesentery in the right mid abdomen with thickening of adjacent bowel loops and mesenteric edema. Findings worrisome for small bowel obstruction with possible internal hernia. Evidence of prior gastric bypass surgery. Hiatal hernia. Appendix is not visualized. Vascular structures: Unremarkable. Lymph nodes: Unremarkable. Miscellaneous: Unremarkable. No free air. Small amount of low-density free fluid around the liver, left pericolic gutter and pelvis. Pelvic Organs: Unremarkable. Bones: Unremarkable for age. IMPRESSION: Dilated small bowel loops measure up to 3.5 centimeters. There is swirling of the mesentery in the right mid abdomen. Evidence of adjacent bowel wall thickening and mesenteric edema. Findings worrisome for small bowel obstruction possible internal hernia. Findings discussed with Dr. Warren on 10/13/2016 at 3:47 a.m.. tt/Dictated by: Hipolito Barnett MD @ 10/13/2016 3:48:00 AM Signed by: Hipolito Barnett MD @10/17/2016 6:02:23 PM (Electronic Signature) Report Signed by Proxy and Original Signed Document filed in the Medical Record. [facility]
== END 2016-10-13 16:55 | disposition home or self-care (01) | DRG 254 ==
LOC: MW.ED 02:07 → MW.MS 05:09 → OBSVTOIN 05:24 → MW.MS 05:37
PROVIDERS: ADMIT Internal Medicine; ATTEND Internal Medicine
DX: K45.8 Other specified abdominal hernia without obstruction or gangrene (principal); G35 Multiple sclerosis; R10.9 Unspecified abdominal pain; D72.829 Elevated white blood cell count, unspecified; K91.89 Other postprocedural complications and disorders of digestive system; F41.8 Other specified anxiety disorders; F17.200 Nicotine dependence, unspecified, uncomplicated; Z90.49 Acquired absence of other specified parts of digestive tract; Z98.890 Other specified postprocedural states; Z87.19 Personal history of other diseases of the digestive system; Z88.8 Allergy status to other drugs, medicaments and biological substances; Z79.899 Other long term (current) drug therapy
CPT/HCPCS: 36415; 71020; 71020-26; 74176; 74176-26; 80053; 80305; 81001; 82150; 83605; 83690; 84484; 85025; 85610; 86850; 86900; 86901; 87040; 87086; 93005; 96361; 96374; 96375; 99285; 99285-25; J0744; J1170; J1650; J1885; J2405; J7030; J7040

== ENCOUNTER 2020-03-31 12:06 | Emergency (ER) | payer BC ==
[2020-03-31] MEDS ORDERED: Sodium Chloride 0.9% 10 ML Syringe FLUSH PRN (12:08)
[2020-03-31] MEDS ORDERED: Sodium Chloride 0.9% 2.5 ML Syringe FLUSH PRN (12:08)
--- NOTE | 2020-03-31 12:12 | EDM.PDOC ---
ED HPI GENERAL MEDICAL PROBLEM - General Chief Complaint: Neurological Problem Stated Complaint: AMS Time Seen by Provider: 03/31/20 12:07 - History of Present Illness INITIAL COMMENTS - FREE TEXT/NARRATIVE: History of present illness: Patient presents via EMS after a witnessed seizure that lasted approximately 2 minutes patient has no prior history of seizure disorder patient does not recall the events patient states now he feels fine back to his normal baseline status he denies any injuries has no headache no chest pain no trouble breathing. He is at his baseline mental status at this time. Review of systems: As per history of present illness and below otherwise all systems reviewed and negative. Past medical history: As per history of present illness and as reviewed below otherwise noncontributory. Surgical history: As per history of present illness and as reviewed below otherwise noncontributory. Social history: No reported history of drug or alcohol abuse. Family history: As per history of present illness and as reviewed below otherwise noncontributory. Physical exam: HEENT: Atraumatic, normocephalic, pupils reactive, negative for conjunctival pallor or scleral icterus, mucous membranes moist, throat clear, neck supple, nontender, trachea midline. Lungs: Clear to auscultation, breath sounds equal bilaterally, chest nontender. Heart: S1S2, regular, negative for clicks, rubs, or JVD. Abdomen: Soft, nondistended, nontender. Negative for masses or hepatosplenomegaly. Negative for costovertebral tenderness. Pelvis: Stable nontender. Genitourinary: Deferred. Rectal: Deferred. Extremities: Atraumatic, negative for cords or calf pain. Neurovascular unremarkable. Neuro: Awake, alert, oriented. Cranial nerves II through XII unremarkable. Cerebellum unremarkable. Motor and sensory unremarkable throughout. Exam nonfocal. Diagnostics: [] Therapeutics: [] Impression: Seizure Plan: Labs CT head reassess the patient. [] Definitive disposition and diagnosis as appropriate pending reevaluation and review of above. - Related Data Allergies Allergy/AdvReac Type Severity Reaction Status Date / Time duloxetine HCl Allergy Mouth Sores Verified 03/31/20 12:12 [From Cymbalta] morphine Allergy Itching Verified 03/31/20 12:12 Sulfa (Sulfonamide Allergy Itching Verified 03/31/20 12:12 Antibiotics) Home Meds: Home Meds Baclofen [Lioresal] 10 mg PO TID 04/18/15 [History] Folic Acid 2 mg PO DAILY 04/18/15 [History] Gabapentin [Neurontin] 100 mg PO TID 04/18/15 [History] LORazepam [Ativan] 2 mg PO ASDIRECTED PRN 04/18/15 [History] Prochlorperazine [Compazine] 10 mg PO Q6H PRN 04/18/15 [History] FLUoxetine [PROzac] 20 mg PO DAILY 04/19/15 [History] Sildenafil Citrate [Viagra] 50 mg PO ASDIRECTED PRN 12/24/15 [History] Cyanocobalamin/Folic AC/Vit B6 [Folbee] 2.5 mg PO BID 01/11/16 [History] Fingolimod HCl [Gilenya] 1 tab PO DAILY 02/15/16 [History] Omeprazole Magnesium [Prilosec Otc] 1 tab PO DAILY 02/15/16 [History] Ascorbate Calcium [Vitamin C] 1 tab PO DAILY 02/20/16 [History] Ferrous Sulfate [Iron] 1 tab PO DAILY 02/20/16 [History] Lutein/Minerals/Vit A,C & E [Ocuvite] 1 tab PO DAILY 02/20/16 [History] Prochlorperazine [Compazine] 10 mg PO ASDIRECTED PRN 02/20/16 [History] traMADol [Ultram] 50 mg PO ASDIRECTED PRN 02/20/16 [History] Docusate Sodium [Colace] 100 mg PO BID #30 cap 02/24/16 [Rx] Past Medical History HEENT History: Reports: Impaired Vision Other HEENT History: wears glasses Cardiovascular History: Reports: None Respiratory History: Reports: None Other Respiratory History: pneumonia Gastrointestinal History: Reports: Other (See Below) Other Gastrointestinal History: rectal prolapse Genitourinary History: Reports: None Other Musculoskeletal History: trauma right knee with surgery Neurological History: Reports: MS Psychiatric History: Reports: Anxiety, Depression Endocrine/Metabolic History: Reports: None Hematologic History: Reports: None Immunologic History: Reports: None Oncologic (Cancer) History: Reports: None Dermatologic History: Reports: Psoriasis Other Dermatologic History: scalp - Infectious Disease History Infectious Disease History: Reports: Chicken Pox - Past Surgical History GI Surgical History: Reports: Bariatric Procedure, Colon, Hernia, Abdominal, Other (See Below) Musculoskeletal Surgical History: Reports: Arthroscopic Knee Social & Family History - Family History Family Medical History: Noncontributory HEENT: Reports: None Cardiac: Reports: None - Caffeine Use Caffeine Use: Reports: Coffee, Soda ED ROS GENERAL - Review of Systems Review Of Systems: See Below ED EXAM, GENERAL - Physical Exam Exam: See Below EKG INTERPRETATION EKG Interpretation Comments: EKG is normal sinus rhythm sinus tachycardia at 110 bpm no ischemic changes otherwise normal EKG QT interval is 353 Course - Vital Signs Text/Narrative:: Patient was reexamined at 1:15 PM he is perfectly alert and oriented to person place and time at this point vital signs are stable he has had no further seizure activity in the ED he was counseled on safety precautions no driving bathing swimming so forth will be referred to neurology. He is negative lab studies are unremarkable discharge home Last Recorded V/S: Last Vital Signs Temp 35.7 C L 03/31/20 12:08 Pulse 108 H 03/31/20 12:08 Resp 20 03/31/20 12:08 BP 145/95 H 03/31/20 12:08 Pulse Ox 94 L 03/31/20 12:08 - Orders/Labs/Meds Orders: Active Orders 24 hr Category Date Time Status Blood Glucose Check, Bedside [RC] ONETIME Care 03/31/20 12:08 Active Cardiac Monitoring [RC] . DIRECTED Care 03/31/20 12:08 Active EKG Documentation Completion [RC] STAT Care 03/31/20 12:08 Active Pulse Oximetry [RC] ASDIRECTED Care 03/31/20 12:08 Active Sodium Chloride 0.9% [Saline Flush] Med 03/31/20 12:08 Active 10 ml FLUSH ASDIRECTED PRN Sodium Chloride 0.9% [Saline Flush] Med 03/31/20 12:08 Active 2.5 ml FLUSH ASDIRECTED PRN Saline Lock Insert [OM.PC] Stat Oth 03/31/20 12:08 Ordered Medication Orders Sodium Chloride (Saline Flush) 10 ml FLUSH ASDIRECTED PRN PRN Reason: Keep Vein Open Last Admin: 03/31/20 12:20 Dose: 10 ml Documented by: [id number] Sodium Chloride (Saline Flush) 2.5 ml FLUSH ASDIRECTED PRN PRN Reason: Keep Vein Open Last Admin: 03/31/20 12:20 Dose: 2.5 ml Documented by: [id number] Labs: Laboratory Tests 03/31/20 03/31/20 Range/Units 12:05 12:05 WBC 8.80 (4.0-11.0) K/uL RBC 4.84 (4.50-5.90) M/uL Hgb 15.2 (13.0-17.0) g/dL Hct 45.5 (38.0-50.0) % MCV 94.0 (80.0-98.0) fL MCH 31.4 (27.0-32.0) pg MCHC 33.4 (31.0-37.0) g/dL RDW Std Deviation 45.7 (28.0-62.0) fl RDW Coeff of Berto 13 (11.0-15.0) % Plt Count 299 (150-400) K/uL MPV 9.10 (7.40-12.00) fL Neut % (Auto) 73.4 (48.0-80.0) % Lymph % (Auto) 17.7 (16.0-40.0) % [place] % (Auto) 8.0 (0.0-15.0) % Eos % (Auto) 0.7 (0.0-7.0) % Baso % (Auto) 0.2 (0.0-1.5) % Neut # (Auto) 6.5 H (1.4-5.7) K/uL Lymph # (Auto) 1.6 (0.6-2.4) K/uL [place] # (Auto) 0.7 (0.0-0.8) K/uL Eos # (Auto) 0.1 (0.0-0.7) K/uL Baso # (Auto) 0.0 (0.0-0.1) K/uL Nucleated RBC % 0.0 /100WBC Nucleated RBCs # 0 K/uL Sodium 136 (136-148) mmol/L Potassium 3.8 (3.5-5.1) mmol/L Chloride 96 L (98-107) mmol/L Carbon Dioxide 13.8 L (21.0-32.0) mmol/L BUN 11 (7.0-18.0) mg/dL Creatinine 1.3 (0.8-1.3) mg/dL Est Cr Clr Drug Dosing 66.47 mL/min Estimated GFR (MDRD) 58.0 ml/min Glucose 152 H (74-106) mg/dL Calcium 9.7 (8.5-10.1) mg/dL Total Bilirubin 0.7 (0.2-1.0) mg/dL AST 43 H (15-37) IU/L ALT 46 (14-63) IU/L Alkaline Phosphatase 100 (46-116) U/L Total Protein 7.9 (6.4-8.2) g/dL Albumin 4.7 (3.4-5.0) g/dL Globulin 3.2 (2.6-4.0) g/dL Albumin/Globulin Ratio 1.5 (0.9-1.6) Meds: Medications Generic Name Dose Route Start Last Admin Trade Name Freq PRN Reason Stop Dose Admin Sodium Chloride 10 ml 03/31/20 12:08 03/31/20 12:20 Saline Flush FLUSH 10 ml ASDIRECTED PRN Administration Keep Vein Open Sodium Chloride 2.5 ml 03/31/20 12:08 03/31/20 12:20 Saline Flush FLUSH 2.5 ml ASDIRECTED PRN Administration Keep Vein Open Departure - Departure Time of Disposition: 13:16 Disposition: Home, Self-Care 01 Condition: Good Clinical Impression: Seizure - Discharge Information *PRESCRIPTION DRUG MONITORING PROGRAM REVIEWED*: Not Applicable *COPY OF PRESCRIPTION DRUG MONITORING REPORT IN PATIENT MARIAELENA: Not Applicable Instructions: Seizure, Adult, [id number] Referrals: PCP,None [Primary Care Provider] - Forms: ED Department Discharge Additional Instructions: The following information is given to patients seen in the emergency department who are being discharged to home. This information is to outline your options for follow-up care. We provide all patients seen in our emergency department with a follow-up referral. The need for follow-up, as well as the timing and circumstances, are variable depending upon the specifics of your emergency department visit. If you don't have a primary care physician on staff, we will provide you with a referral. We always advise you to contact your personal physician following an emergency department visit to inform them of the circumstance of the visit and for follow-up with them and/or the need for any referrals to a consulting specialist. The emergency department will also refer you to a specialist when appropriate. This referral assures that you have the opportunity for follow-up care with a specialist. All of these measure are taken in an effort to provide you with optimal care, which includes your follow-up. Under all circumstances we always encourage you to contact your private physician who remains a resource for coordinating your care. When calling for follow-up care, please make the office aware that this follow-up is from your recent emergency room visit. If for any reason you are refused follow-up, please contact the [facility] Emergency Department at and asked to speak to the emergency department charge nurse. [facility] [address] [place] [address], [address] [place] [address] Sepsis Event Note (ED) - Focused Exam Vital Signs: Vital Signs Temp Pulse Resp BP Pulse Ox 03/31/20 12:08 35.7 C L 108 H 20 145/95 H 94 L - My Orders Last 24 Hours: My Active Orders 03/31/20 12:08 Blood Glucose Check, Bedside [RC] ONETIME Cardiac Monitoring [RC] . DIRECTED EKG Documentation Completion [RC] STAT Pulse Oximetry [RC] ASDIRECTED Sodium Chloride 0.9% [Saline Flush] 10 ml FLUSH ASDIRECTED PRN Sodium Chloride 0.9% [Saline Flush] 2.5 ml FLUSH ASDIRECTED PRN Saline Lock Insert [OM.PC] Stat - Assessment/Plan Last 24 Hours: My Active Orders 03/31/20 12:08 Blood Glucose Check, Bedside [RC] ONETIME Cardiac Monitoring [RC] . DIRECTED EKG Documentation Completion [RC] STAT Pulse Oximetry [RC] ASDIRECTED Sodium Chloride 0.9% [Saline Flush] 10 ml FLUSH ASDIRECTED PRN Sodium Chloride 0.9% [Saline Flush] 2.5 ml FLUSH ASDIRECTED PRN Saline Lock Insert [OM.PC] Stat
[2020-03-31 12:50] LABS: CARBON DIOXIDE,CO2 13.8 mmol/L (21.0-32.0); POTASSIUM,K 3.8 mmol/L (3.5-5.1)
--- NOTE | 2020-03-31 12:50 | CT ---
Head CT Technique: Multiple axial sections through the brain were obtained. Intravenous contrast was not utilized. Comparison: Prior MRI brain of 11/06/19. Findings: Ventricles along with basal cisterns and sulci over the convexities are within normal limits for the patient's age. No abnormal parenchymal densities are seen. No evidence of intracranial hemorrhage. No midline shift or mass-effect is seen. Bone window settings were reviewed which shows no acute calvarial finding. Visualized mastoid sinuses and visualized paranasal sinuses show nothing acute. Impression: 1. Nothing acute is appreciated on noncontrast head CT exam. Diagnostic code #1 This report was dictated in MDT
[2020-03-31 13:26] VITALS: BP 140/90; PULSE 96
== END 2020-03-31 13:26 | disposition home or self-care (01) ==
LOC: MW.ED 12:06
DX: R56.9 Unspecified convulsions (principal); G35 Multiple sclerosis; F41.9 Anxiety disorder, unspecified; F32.9 Major depressive disorder, single episode, unspecified; Z88.2 Allergy status to sulfonamides; Z88.8 Allergy status to other drugs, medicaments and biological substances; Z87.891 Personal history of nicotine dependence; Z79.899 Other long term (current) drug therapy; Z88.5 Allergy status to narcotic agent
CPT/HCPCS: 36415; 70450; 70450-26; 80053; 85025; 93005; 99285-25

== ENCOUNTER 2020-06-17 11:02 | Emergency (ER) | payer MEDICARE, BC ==
[2020-06-17] MEDS ORDERED: Sodium Chloride 0.9% 1,000 ML IV ONE (11:09)
[2020-06-17] MEDS ORDERED: Ondansetron 4 MG/2 ML SDV IVPUSH ONE (11:09)
[2020-06-17] MEDS ORDERED: Pantoprazole 40 MG in Sodium Chloride 0.9% 10 ML IV ONE (11:09)
[2020-06-17] MEDS ORDERED: Sodium Chloride 0.9% 10 ML Syringe FLUSH PRN (11:09)
--- NOTE | 2020-06-17 11:19 | EDM.PDOC ---
ED HPI GENERAL MEDICAL PROBLEM - General Chief Complaint: Abdominal Pain Stated Complaint: gi bleed, anemia Time Seen by Provider: 06/17/20 11:03 Source of Information: Reports: Patient, Other History Limitations: Reports: No Limitations, Intoxication - History of Present Illness INITIAL COMMENTS - FREE TEXT/NARRATIVE: History of present illness: [Patient is 54-year-old male who comes from his PCPs office for GI bleed and anemia. His doctor called me and told me that he had a hemoglobin of 6.2 and that he was Hemoccult positive on her digital rectal exam. Patient has a hi story of previous gastric bypass surgery. states that he has some mild periumbilical pain. Has a history of chronic alcohol use. Denies ever requiring a blood transfusion. When asked if he is experiencing any chest pain or shortness of breath he says "I have those symptoms all the time." Denies any acute worsening of the symptoms. Denies fever or chills.] Review of systems: As per history of present illness and below otherwise all systems reviewed and negative. Past medical history: As per history of present illness and as reviewed below otherwise noncontributory. Surgical history: As per history of present illness and as reviewed below otherwise noncontributory. Social history: No reported history of drug or alcohol abuse. Family history: As per history of present illness and as reviewed below otherwise noncontributory. Physical exam: General: Awake, alert, no acute distress, A&O X3. HEENT: Atraumatic, normocephalic, pupils reactive, negative for conjunctival pallor or scleral icterus, mucous membranes moist, throat clear, neck supple, nontender, trachea midline. Lungs: Clear to auscultation, breath sounds equal bilaterally, chest nontender. Heart: tachycardia, normal S1S2, no JVD. Abdomen: Soft, nondistended, nontender. Negative for masses or hepatosplenomegaly. Negative for costovertebral tenderness. Pelvis: Stable nontender. Genitourinary: Deferred. Rectal: Deferred. Extremities: Atraumatic, no edema, Neurovascular unremarkable. Neuro: Motor and sensory grossly intact throughout. Exam nonfocal. Diagnostics: [] Therapeutics: [] Impression: [] Plan: [] Definitive disposition and diagnosis as appropriate pending reevaluation and review of above. abdomen Pain Score (Numeric/FACES): 3 - Related Data Allergies Allergy/AdvReac Type Severity Reaction Status Date / Time duloxetine HCl Allergy Mouth Sores Verified 06/17/20 11:22 [From Cymbalta] morphine Allergy Itching Verified 06/17/20 11:22 Sulfa (Sulfonamide Allergy Itching Verified 06/17/20 11:22 Antibiotics) Home Meds: Home Meds Baclofen [Lioresal] 10 mg PO TID 04/18/15 [History] Folic Acid 2 mg PO DAILY 04/18/15 [History] Gabapentin [Neurontin] 100 mg PO TID 04/18/15 [History] LORazepam [Ativan] 2 mg PO ASDIRECTED PRN 04/18/15 [History] Prochlorperazine [Compazine] 10 mg PO Q6H PRN 04/18/15 [History] FLUoxetine [PROzac] 20 mg PO DAILY 04/19/15 [History] Sildenafil Citrate [Viagra] 50 mg PO ASDIRECTED PRN 12/24/15 [History] Cyanocobalamin/Folic AC/Vit B6 [Folbee] 2.5 mg PO BID 01/11/16 [History] Fingolimod HCl [Gilenya] 1 tab PO DAILY 02/15/16 [History] Omeprazole Magnesium [Prilosec Otc] 1 tab PO DAILY 02/15/16 [History] Ascorbate Calcium [Vitamin C] 1 tab PO DAILY 02/20/16 [History] Ferrous Sulfate [Iron] 1 tab PO DAILY 02/20/16 [History] Lutein/Minerals/Vit A,C & E [Ocuvite] 1 tab PO DAILY 02/20/16 [History] Prochlorperazine [Compazine] 10 mg PO ASDIRECTED PRN 02/20/16 [History] traMADol [Ultram] 50 mg PO ASDIRECTED PRN 02/20/16 [History] Docusate Sodium [Colace] 100 mg PO BID #30 cap 02/24/16 [Rx] Past Medical History HEENT History: Reports: Impaired Vision Other HEENT History: wears glasses Cardiovascular History: Reports: None Respiratory History: Reports: None Other Respiratory History: pneumonia Gastrointestinal History: Reports: Other (See Below) Other Gastrointestinal History: rectal prolapse Genitourinary History: Reports: None Other Musculoskeletal History: trauma right knee with surgery Neurological History: Reports: MS Psychiatric History: Reports: Anxiety, Depression Endocrine/Metabolic History: Reports: None Hematologic History: Reports: None Immunologic History: Reports: None Oncologic (Cancer) History: Reports: None Dermatologic History: Reports: Psoriasis Other Dermatologic History: scalp - Infectious Disease History Infectious Disease History: Reports: Chicken Pox - Past Surgical History GI Surgical History: Reports: Bariatric Procedure, Colon, Hernia, Abdominal, Other (See Below) Musculoskeletal Surgical History: Reports: Arthroscopic Knee Social & Family History - Family History Family Medical History: Noncontributory HEENT: Reports: None Cardiac: Reports: None - Caffeine Use Caffeine Use: Reports: Coffee, Soda ED ROS GENERAL - Review of Systems Review Of Systems: Comprehensive ROS is negative, except as noted in HPI. ED EXAM, GI/ABD - Physical Exam Exam: See Below (see h and p) #1 Interpretation EKG Date: 06/17/20 Time: 11:22 Rhythm: NSR Rate (Beats/Min): 114 Castaner: Normal P-Wave: Present QRS: Normal ST-T: Normal QT: Normal EKG Interpretation Comments: sinus tach Course - Vital Signs Text/Narrative:: Patient transferred to [facility] for [facility] consult. Blood transfusion was initiated here. Patient hemodynamically stable at the time of transport. We elected to fly the patient because ground transport would have taken at least 3 hours to get here and then a subsequent 4 hours to get to the facility and given that he is anemic at 5.[address] scan suggest there is a possible active bleed, though his presentation would suggest that the findings on the CT are likely ingested material more than they are blood, I cannot rule it out and therefore I believe a more timely transfer is appropriate. He was initially tachycardic, this improved with some fluids. Blood pressure has remained stabl e. He is agreeable with plan for admission and transfer via flight. Last Recorded V/S: Last Vital Signs Temp 36.3 C 06/17/20 11:04 Pulse 95 06/17/20 13:05 Resp 18 06/17/20 13:05 BP 130/84 06/17/20 13:05 Pulse Ox 97 06/17/20 13:05 - Orders/Labs/Meds Orders: Active Orders 24 hr Category Date Time Status RED BLOOD CELLS LP [BBK] Stat Lab 06/17/20 11:28 Results TYPE AND SCREEN [BBK] Stat Lab 06/17/20 11:28 Results Saline Lock Insert [OM.PC] Stat Oth 06/17/20 11:09 Ordered Transfuse RBC [Transfuse Red Blood Cells] [COMM] Stat Ot 06/17/20 12:35 Ordered Labs: Laboratory Tests 06/17/20 06/17/20 06/17/20 Range/Units 11:28 11:28 11:28 WBC 3.48 L (4.0-11.0) K/uL RBC 1.70 L (4.50-5.90) M/uL Hgb 5.6 L (13.0-17.0) g/dL Hct 17.8 L (38.0-50.0) % MCV 104.7 H (80.0-98.0) fL MCH 32.9 H (27.0-32.0) pg MCHC 31.5 (31.0-37.0) g/dL RDW Std Deviation 71.4 H (28.0-62.0) fl RDW Coeff of Berto 19 H (11.0-15.0) % Plt Count 262 (150-400) K/uL MPV 8.30 (7.40-12.00) fL Neut % (Auto) 77.6 (48.0-80.0) % Lymph % (Auto) 10.9 L (16.0-40.0) % [place] % (Auto) 10.3 (0.0-15.0) % Eos % (Auto) 0.6 (0.0-7.0) % Baso % (Auto) 0.6 (0.0-1.5) % Neut # (Auto) 2.7 (1.4-5.7) K/uL Lymph # (Auto) 0.4 L (0.6-2.4) K/uL [place] # (Auto) 0.4 (0.0-0.8) K/uL Eos # (Auto) 0.0 (0.0-0.7) K/uL Baso # (Auto) 0.0 (0.0-0.1) K/uL Nucleated RBC % 0.7 /100WBC Nucleated RBCs # 0 K/uL INR 0.94 APTT 20.3 (18.6-31.3) SEC Sodium 137 (136-148) mmol/L Potassium 3.5 (3.5-5.1) mmol/L Chloride 99 (98-107) mmol/L Carbon Dioxide 21.6 (21.0-32.0) mmol/L BUN 11 (7.0-18.0) mg/dL Creatinine 0.7 L (0.8-1.3) mg/dL Est Cr Clr Drug Dosing 123.44 mL/min Estimated GFR (MDRD) > 60.0 ml/min Glucose 99 (74-106) mg/dL Calcium 7.9 L (8.5-10.1) mg/dL Total Bilirubin 0.4 (0.2-1.0) mg/dL AST 70 H (15-37) IU/L ALT 52 (14-63) IU/L Alkaline Phosphatase 61 (46-116) U/L Troponin I < 0.050 (0.000-0.056) ng/mL Total Protein 6.1 L (6.4-8.2) g/dL Albumin 3.7 (3.4-5.0) g/dL Globulin 2.4 L (2.6-4.0) g/dL Albumin/Globulin Ratio 1.5 (0.9-1.6) Ethyl Alcohol 354 mg/dL SARS-CoV-2 RNA (BA) (NEGATIVE) Blood Type Antibody Screen Crossmatch 06/17/20 06/17/20 Range/Units 11:28 12:08 WBC (4.0-11.0) K/uL RBC (4.50-5.90) M/uL Hgb (13.0-17.0) g/dL Hct (38.0-50.0) % MCV (80.0-98.0) fL MCH (27.0-32.0) pg MCHC (31.0-37.0) g/dL RDW Std Deviation (28.0-62.0) fl RDW Coeff of Berto (11.0-15.0) % Plt Count (150-400) K/uL MPV (7.40-12.00) fL Neut % (Auto) (48.0-80.0) % Lymph % (Auto) (16.0-40.0) % [place] % (Auto) (0.0-15.0) % Eos % (Auto) (0.0-7.0) % Baso % (Auto) (0.0-1.5) % Neut # (Auto) (1.4-5.7) K/uL Lymph # (Auto) (0.6-2.4) K/uL [place] # (Auto) (0.0-0.8) K/uL Eos # (Auto) (0.0-0.7) K/uL Baso # (Auto) (0.0-0.1) K/uL Nucleated RBC % /100WBC Nucleated RBCs # K/uL INR APTT (18.6-31.3) SEC Sodium (136-148) mmol/L Potassium (3.5-5.1) mmol/L Chloride (98-107) mmol/L Carbon Dioxide (21.0-32.0) mmol/L BUN (7.0-18.0) mg/dL Creatinine (0.8-1.3) mg/dL Est Cr Clr Drug Dosing mL/min Estimated GFR (MDRD) ml/min Glucose (74-106) mg/dL Calcium (8.5-10.1) mg/dL Total Bilirubin (0.2-1.0) mg/dL AST (15-37) IU/L ALT (14-63) IU/L Alkaline Phosphatase (46-116) U/L Troponin I (0.000-0.056) ng/mL Total Protein (6.4-8.2) g/dL Albumin (3.4-5.0) g/dL Globulin (2.6-4.0) g/dL Albumin/Globulin Ratio (0.9-1.6) Ethyl Alcohol mg/dL SARS-CoV-2 RNA (BA) NEGATIVE (NEGATIVE) Blood Type O NEGATIVE Antibody Screen NEGATIVE Crossmatch See Detail Meds: Medications Discontinued Medications Generic Name Dose Route Start Last Admin Trade Name Freq PRN Reason Stop Dose Admin Sodium Chloride 1,000 mls @ 999 mls/hr 06/17/20 11:06/17/20 11:21 Normal Saline IV 06/17/20 12:09 999 mls/hr .Bolus ONE Administration Pantoprazole Sodium 40 mg/ 10 mls @ 300 mls/hr 06/17/20 11:09 06/17/20 11:28 Sodium Chloride IV 06/17/20 11:10 300 mls/hr NOW ONE Administration Iopamidol 100 ml 06/17/20 12:44 06/17/20 12:45 Isovue Multipack-370 (76%) IVPUSH 06/17/20 12:45 100 ml ONETIME ONE Administration Lorazepam 1 mg 06/17/20 13:37 06/17/20 13:43 Ativan IVPUSH 06/17/20 13:38 1 mg ONETIME ONE Administration Ondansetron HCl 4 mg 06/17/20 11:09 06/17/20 11:33 Zofran IVPUSH 06/17/20 11:10 4 mg ONETIME ONE Administration Sodium Chloride 10 ml 06/17/20 11:09 Saline Flush FLUSH ASDIRECTED PRN Keep Vein Open Sodium Chloride 2.5 ml 06/17/20 11:09 06/17/20 11:35 Saline Flush FLUSH 2.5 ml ASDIRECTED PRN Administration Keep Vein Open Departure - Departure Time of Disposition: 14:40 Disposition: DC/Tfer to Acute Hospital 02 Condition: Good Clinical Impression: Melena, Anemia - Discharge Information Instructions: Blood Transfusion, Adult, Care After, [id number] Referrals: Ezra Escalante MD [Primary Care Provider] - Forms: ED Department Discharge Critical Care Note - Critical Care Note Total Time (mins): 35 Comments: Critical care time for anemia, GI bleed, hemodynamics, consults. Sepsis Event Note (ED) - Focused Exam Vital Signs: Vital Signs Temp Pulse Resp BP Pulse Ox 06/17/20 13:05 95 18 130/84 97 06/17/20 11:04 36.3 C 103 H 18 119/74 95 - My Orders Last 24 Hours: My Active Orders 06/17/20 11:09 Saline Lock Insert [OM.PC] Stat 06/17/20 11:28 RED BLOOD CELLS LP [BBK] Stat TYPE AND SCREEN [BBK] Stat 06/17/20 12:35 Transfuse RBC [Transfuse Red Blood Cells] [COMM] Stat - Assessment/Plan Last 24 Hours: My Active Orders 06/17/20 11:09 Saline Lock Insert [OM.PC] Stat 06/17/20 11:28 RED BLOOD CELLS LP [BBK] Stat TYPE AND SCREEN [BBK] Stat 06/17/20 12:35 Transfuse RBC [Transfuse Red Blood Cells] [COMM] Stat
[2020-06-17] MEDS: Sodium Chloride 0.9% 2.5 ML Syringe FLUSH PRN ×2 (11:24→11:35)
[2020-06-17 12:08] LABS: BLOOD UREA NITROGEN,BUN 11 mg/dL (7.0-18.0); CARBON DIOXIDE,CO2 21.6 mmol/L (21.0-32.0); CHLORIDE,CL 99 mmol/L (98-107); GLUCOSE RANDOM 99 mg/dL (74-106); POTASSIUM,K 3.5 mmol/L (3.5-5.1); SODIUM,NA 137 mmol/L (136-148)
[2020-06-17] MEDS ORDERED: Iopamidol 755 MG/ML 500 ML Multipack Bottle IVPUSH ONE (12:44)
[2020-06-17] MEDS ORDERED: LORazepam 2 MG/ML SDV IVPUSH ONE (13:37)
[2020-06-17 13:46] VITALS: BP 130/84; PULSE 95
--- NOTE | 2020-06-17 14:24 | CT ---
INDICATION: Anemia. Possible GI bleed. CLINICAL HISTORY : Patient presents with anemia and has questionable history of GI bleed. Reportedly, patient poor historian so it is unclear if this is due to hemoccult positive stool, flank melena, or hematochezia. TECHNIQUE: Contiguous axial CT images are obtained of the abdomen/pelvis in arterial phase after uneventful administration of IV contrast. Coronal and sagittal reformations generated reviewed. COMPARISON: 10/13/2016. FINDINGS : Postsurgical changes status post gastric bypass there is surgical mesh along the anterior abdominal wall in the pelvis. There is some suture material adjacent to the sigmoid colon. This is all unchanged from the 2017 exam. The study was not acquired with a typical GI bleed protocol. There are multiple foci of density within the bowel lumen noted in the proximal small bowel (series 402, images [id number]) and another region with some high density in the distal small bowel in the left lower quadrant (images [id number]). Without noncontrast imaging, it is difficult to determine whether the observed intraluminal high density material are represents ingested material or is extravasated contrast from an active GI bleed. There is no evidence of bowel obstruction. There is some wall thickening in the rectum and sigmoid colon which is indeterminate and could be related to under distention. There is some linear atelectasis in the lung bases. There are no pulmonary nodules or pulmonary opacities. Normal heart size. In the liver there is a benign hemangioma noted in segment 5, posterior to the gallbladder measuring 3.2 x 3.9 cm. No other liver lesions are identified. Spleen, adrenal glands, kidneys, and the pancreas are unremarkable. There is no evidence of bowel obstruction. There is no bowel wall thickening. The prostate size is within normal limits. There is a calcification in the dependent portion of the urinary bladder near the right ureterovesicular junction. No hydronephrosis or ureterectasis. There is no adenopathy in the abdomen or pelvis. No pneumoperitoneum. There is no free fluid. No acute or aggressive osseous abnormalities are noted. There is a compression deformity of the T9 vertebral body that is unchanged from 2017. Healing fracture in posterior left 11th rib. IMPRESSION: 1. A few foci of intraluminal high density in the proximal and distal small bowel. Unfortunately, this study was not performed with a standard GI bleed CT protocol (noncontrast/arterial/venous phase), so it is difficult to differentiate dense ingested material from extravasated contrast from an active GI bleed. Of note, both of these areas are quite prominent. If either were to active hemorrhage, the patient would likely be very symptomatic. Discussed with Dr. Holloway. Clinically, the patient is hemodynamically stable, so I favor that the intraluminal high density to be more consistent with ingested material. 2. Postsurgical changes from prior gastric bypass and prior colonic surgery. Surgical mesh adjacent to anterior abdominal wall. 3. Benign hemangioma segment 5 of liver. Please note that all CT scans at this facility use dose modulation, iterative reconstruction, and/or weight-based dosing when appropriate to reduce radiation dose to as low as reasonably achievable. Dictated by Cooper Vega MD @ Jun 17 2020 1:37PM Signed by Dr. Cooper Vega @ Jun 17 2020 2:23PM
== END 2020-06-17 15:20 ==
LOC: MW.ED 11:02
DX: K92.1 Melena (principal); D64.9 Anemia, unspecified; F41.9 Anxiety disorder, unspecified; F32.9 Major depressive disorder, single episode, unspecified; G35 Multiple sclerosis; Z20.828 Contact with and (suspected) exposure to other viral communicable diseases; Z88.8 Allergy status to other drugs, medicaments and biological substances; Z88.5 Allergy status to narcotic agent; Z88.2 Allergy status to sulfonamides; Z79.899 Other long term (current) drug therapy
CPT/HCPCS: 36415; 36430; 74174; 80053; 80307; 84484; 85025; 85610; 85730; 86850; 86900; 86901; 86920; 86921; 86922; 93005; 96374; 96375; 99285; C9113; J2060; J2405; J7030; P9016; Q9967; U0002

== ENCOUNTER 2022-09-21 09:17 | Emergency (ER) | payer BC, MEDICARE ==
[2022-09-21] MEDS ORDERED: LORazepam 2 MG/ML SDV IVPUSH STA (10:23)
[2022-09-21] MEDS ORDERED: Sodium Chloride 0.9% 1,000 ML IV STA ×2 (10:23→12:04)
[2022-09-21] MEDS ORDERED: Albuterol/Ipratropium 3.0-0.5 MG/3 ML Neb Soln NEB STA (10:24)
[2022-09-21 11:05] LABS: CORONAVIRUS COVID-19 NAA NEGATIVE (NEGATIVE); INFLUENZA A NAA NEGATIVE (NEGATIVE); INFLUENZA B NAA NEGATIVE (NEGATIVE)
[2022-09-21 11:44] VITALS: PULSE 97
[2022-09-21 12:05] LABS: CARBON DIOXIDE,CO2 26.2 mmol/L (21.0-32.0); POTASSIUM,K 4.2 mmol/L (3.5-5.1)
[2022-09-21 13:32] VITALS: BP 136/86
== END 2022-09-21 13:31 | disposition home or self-care (01) ==
LOC: MW.ED 09:17
DX: R06.02 Shortness of breath (principal); F41.9 Anxiety disorder, unspecified; F10.920 Alcohol use, unspecified with intoxication, uncomplicated; J44.9 Chronic obstructive pulmonary disease, unspecified; Z88.8 Allergy status to other drugs, medicaments and biological substances; Z88.5 Allergy status to narcotic agent; Z88.2 Allergy status to sulfonamides; Z87.891 Personal history of nicotine dependence; Z20.822 Contact with and (suspected) exposure to COVID-19; Y90.8 Blood alcohol level of 240 mg/100 ml or more
CPT/HCPCS: 0240U; 36415; 71045; 80053; 80307; 83735; 83880; 84443; 84484; 85025; 93005; 96361; 96374; 99285; J2060; J7030; J7620-GY

== ENCOUNTER 2023-08-28 08:31 | Emergency (ER) | payer BC, MEDICARE ==
[2023-08-28 08:52] LABS: BASOPHILS ABSOLUTE AUTO 0.04 K/uL (0.00-0.20); BASOPHILS PERCENT AUTO 0.9 % (0.0-1.0); EOSINOPHILS ABSOLUTE AUTO 0.03 K/uL (0.00-0.45); EOSINOPHILS PERCENT AUTO 0.7 % (0.0-6.0); HEMATOCRIT 43.5 % (42.0-52.0); IMMATURE GRAN ABSOLUTE AUTO 0.22 K/uL (0.00-0.05); LYMPHOCYTES ABSOLUTE AUTO 0.72 K/uL (1.00-4.80); LYMPHOCYTES PERCENT AUTO 16.4 % (24.0-44.0); MEAN CORPUSCULAR HEMOGLOBIN 31.4 pg (28.0-32.0); MEAN CORPUSCULAR HGB CONC 34.5 g/dL (32.0-36.0); MEAN CORPUSCULAR VOLUME 91.2 fL (83.0-99.0); MEAN PLATELET VOLUME 8.8 fL (9.4-12.4); MONOCYTES ABSOLUTE AUTO 0.77 K/uL (0.00-0.80); MONOCYTES PERCENT AUTO 17.6 % (0.0-8.0); NEUTROPHILS PERCENT AUTO 59.4 % (41.0-71.0); PLATELET COUNT,PLT 196 K/uL (150-400); RED BLOOD CELL COUNT 4.77 M/uL (4.52-5.90); WHITE BLOOD CELL COUNT,WBC 4.38 K/uL (3.9-11.3)
[2023-08-28 09:01] LABS: INR 0.95 (0.86-1.11)
[2023-08-28 09:16] LABS: A/G RATIO 1.2 (0.9-1.6); BILIRUBIN TOTAL 0.6 mg/dL (0.2-1.0); CALCIUM 8.5 mg/dL (8.5-10.1); CARBON DIOXIDE,CO2 19.5 mmol/L (21.0-32.0); CREATININE 0.8 mg/dL (0.8-1.3); EST CRCL DRUG DOSING (CG) 103.1 mL/min; POTASSIUM,K 3.7 mmol/L (3.5-5.1); PROTEIN TOTAL,TP 7.3 g/dL (6.4-8.2)
[2023-08-28 11:48] VITALS: BP 145/99; PULSE 95
== END 2023-08-28 11:46 | disposition home or self-care (01) ==
LOC: MW.ED 08:31
DX: R07.9 Chest pain, unspecified (principal); F10.10 Alcohol abuse, uncomplicated; J44.9 Chronic obstructive pulmonary disease, unspecified; Z79.899 Other long term (current) drug therapy; Z88.2 Allergy status to sulfonamides; Z88.5 Allergy status to narcotic agent; Z88.8 Allergy status to other drugs, medicaments and biological substances
CPT/HCPCS: 36415; 71045; 71045-26; 80053; 80307; 83735; 84484; 85025; 85610; 85730; 93005; 99284; 99285

== ENCOUNTER 2024-07-14 11:48 | Emergency (ER) | payer BC, MEDICARE ==
[2024-07-14 12:02] VITALS: PULSE 95
[2024-07-14] MEDS ORDERED: Sodium Chloride 0.9% 10 ML Syringe FLUSH PRN (12:04)
[2024-07-14] MEDS ORDERED: Sodium Chloride 0.9% 2.5 ML Syringe FLUSH PRN (12:04)
[2024-07-14 12:10] LABS: BASOPHILS ABSOLUTE AUTO 0.03 K/uL (0.00-0.20); BASOPHILS PERCENT AUTO 0.8 % (0.0-1.0); EOSINOPHILS ABSOLUTE AUTO 0.09 K/uL (0.00-0.45); EOSINOPHILS PERCENT AUTO 2.4 % (0.0-6.0); HEMATOCRIT 39.9 % (42.0-52.0); HEMOGLOBIN 13.6 g/dL (14.0-18.0); IMMATURE GRAN ABSOLUTE AUTO 0.02 K/uL (0.00-0.05); IMMATURE GRAN PERCENT AUTO 0.5 % (0.0-0.4); LYMPHOCYTES ABSOLUTE AUTO 1.06 K/uL (1.00-4.80); LYMPHOCYTES PERCENT AUTO 27.7 % (24.0-44.0); MEAN CORPUSCULAR HEMOGLOBIN 30.2 pg (28.0-32.0); MEAN CORPUSCULAR HGB CONC 34.1 g/dL (32.0-36.0); MEAN CORPUSCULAR VOLUME 88.7 fL (83.0-99.0); MEAN PLATELET VOLUME 9.1 fL (9.4-12.4); MONOCYTES ABSOLUTE AUTO 0.39 K/uL (0.00-0.80); MONOCYTES PERCENT AUTO 10.2 % (0.0-8.0); NEUTROPHILS ABSOLUTE AUTO 2.23 K/uL (1.80-7.70); NEUTROPHILS PERCENT AUTO 58.4 % (41.0-71.0); PLATELET COUNT,PLT 218 K/uL (150-400); WHITE BLOOD CELL COUNT,WBC 3.82 K/uL (3.9-11.3)
[2024-07-14] MEDS: fentaNYL 50 MCG/ML SDV IVPUSH ONE (12:14)
[2024-07-14] MEDS: Aspirin 81 MG Tab.Chew PO ONE (12:14)
[2024-07-14 12:23] LABS: INR 1.01 (0.86-1.11)
[2024-07-14 12:37] LABS: A/G RATIO 1.3 (0.9-1.6); ALBUMIN 4.1 g/dL (3.4-5.0); BILIRUBIN TOTAL 0.4 mg/dL (0.2-1.0); CALCIUM 8.6 mg/dL (8.5-10.1); CARBON DIOXIDE,CO2 24.7 mmol/L (21.0-32.0); CREATININE 0.8 mg/dL (0.8-1.3); EST CRCL DRUG DOSING (CG) 106.46 mL/min; POTASSIUM,K 3.9 mmol/L (3.5-5.1); PROTEIN TOTAL,TP 7.2 g/dL (6.4-8.2)
[2024-07-14 12:55] VITALS: BP 132/87
== END 2024-07-14 13:58 | disposition home or self-care (01) ==
LOC: MW.ED 11:48
DX: R07.89 Other chest pain (principal); J44.9 Chronic obstructive pulmonary disease, unspecified; Z88.2 Allergy status to sulfonamides; Z88.5 Allergy status to narcotic agent; Z88.8 Allergy status to other drugs, medicaments and biological substances; Z79.899 Other long term (current) drug therapy
CPT/HCPCS: 36415; 71045; 80053; 80307; 84484; 85025; 85610; 93005; 96374; 99285; A9270; J3010

== ENCOUNTER 2024-07-22 11:41 | Emergency (ER) | payer BC, MEDICARE ==
[~2024-07-22 11:41] MED LIST: Lidocaine 1% with EPINEPHrine 1:100,000 10 ML MDV ONE
[2024-07-22] MEDS: Iopamidol 755 Mg/ML 100 ML Bottle IVPUSH ONE ×2 (12:16→12:18)
[2024-07-22] MEDS ORDERED: Iopamidol 612 MG/ML 100 ML Bottle IVPUSH ONE (12:20)
[2024-07-22 12:22] LABS: BASOPHILS ABSOLUTE AUTO 0.03 K/uL (0.00-0.20); BASOPHILS PERCENT AUTO 0.6 % (0.0-1.0); EOSINOPHILS ABSOLUTE AUTO 0.11 K/uL (0.00-0.45); EOSINOPHILS PERCENT AUTO 2.2 % (0.0-6.0); HEMATOCRIT 35.7 % (42.0-52.0); HEMOGLOBIN 11.8 g/dL (14.0-18.0); IMMATURE GRAN ABSOLUTE AUTO 0.05 K/uL (0.00-0.05); LYMPHOCYTES ABSOLUTE AUTO 0.37 K/uL (1.00-4.80); LYMPHOCYTES PERCENT AUTO 7.3 % (24.0-44.0); MEAN CORPUSCULAR HEMOGLOBIN 29.9 pg (28.0-32.0); MEAN CORPUSCULAR HGB CONC 33.1 g/dL (32.0-36.0); MEAN CORPUSCULAR VOLUME 90.6 fL (83.0-99.0); MEAN PLATELET VOLUME 8.9 fL (9.4-12.4); MONOCYTES ABSOLUTE AUTO 0.35 K/uL (0.00-0.80); MONOCYTES PERCENT AUTO 6.9 % (0.0-8.0); NEUTROPHILS ABSOLUTE AUTO 4.18 K/uL (1.80-7.70); PLATELET COUNT,PLT 232 K/uL (150-400); RED BLOOD CELL COUNT 3.94 M/uL (4.52-5.90); WHITE BLOOD CELL COUNT,WBC 5.09 K/uL (3.9-11.3)
[2024-07-22] MEDS: Acetaminophen 500 MG Tab PO ONE (12:23)
[2024-07-22] MEDS: Ondansetron 4 MG/2 ML SDV IVPUSH ONE (12:24)
[2024-07-22] MEDS: Iopamidol 755 MG/ML 500 ML Multipack Bottle IVPUSH STA (12:25)
[2024-07-22] MEDS: Diphtheria,Pertussis(Acell),Tetanus Vaccine 0.5 ML Syringe IM ONE (12:27)
[2024-07-22 12:46] LABS: A/G RATIO 1.5 (0.9-1.6); ALBUMIN 3.9 g/dL (3.4-5.0); BILIRUBIN TOTAL 0.4 mg/dL (0.2-1.0); CALCIUM 8.4 mg/dL (8.5-10.1); CARBON DIOXIDE,CO2 22.5 mmol/L (21.0-32.0); CREATININE 0.9 mg/dL (0.8-1.3); EST CRCL DRUG DOSING (CG) 88.67 mL/min; POTASSIUM,K 4.1 mmol/L (3.5-5.1); PROTEIN TOTAL,TP 6.5 g/dL (6.4-8.2)
[2024-07-22] MEDS: Lidocaine 1% with EPINEPHrine 1:100,000 10 ML MDV INFILT ONE (12:48)
[2024-07-22 12:49] LABS: INR 1.05 (0.86-1.11)
[2024-07-22] MEDS: Sodium Chloride 0.9% 10 ML Syringe FLUSH PRN (12:49)
[2024-07-22] MEDS ORDERED: Morphine 4 MG/ML Syringe IVPUSH PRN (12:57)
[2024-07-22] MEDS: Ketorolac 30 MG/ML SDV IVPUSH ONE (14:02)
[2024-07-22] MEDS: Bacitracin Oint 1 GM U/D Packet TOP ONE (14:47)
[2024-07-22 14:50] VITALS: BP 130/82; PULSE 81
== END 2024-07-22 14:50 | disposition home or self-care (01) ==
LOC: MW.ED 11:41
DX: S32.019A Unspecified fracture of first lumbar vertebra, initial encounter for closed fracture (principal); S32.029A Unspecified fracture of second lumbar vertebra, initial encounter for closed fracture; S09.90XA Unspecified injury of head, initial encounter; S21.211A Laceration without foreign body of right back wall of thorax without penetration into thoracic cavity, initial encounter; S20.212A Contusion of left front wall of thorax, initial encounter; S30.0XXA Contusion of lower back and pelvis, initial encounter; S30.1XXA Contusion of abdominal wall, initial encounter; F10.120 Alcohol abuse with intoxication, uncomplicated; I25.2 Old myocardial infarction; J44.9 Chronic obstructive pulmonary disease, unspecified; Z98.84 Bariatric surgery status; Z88.5 Allergy status to narcotic agent; Z88.2 Allergy status to sulfonamides; Z88.8 Allergy status to other drugs, medicaments and biological substances; Z79.899 Other long term (current) drug therapy; W25.XXXA Contact with sharp glass, initial encounter; Y90.8 Blood alcohol level of 240 mg/100 ml or more; Z23 Encounter for immunization
CPT/HCPCS: 12002; 36415; 70450; 71260; 74177; 80053; 80307; 85025; 85610; 90471; 90715; 96374; 96375; 99284; A9270; J1885; J2405; Q9967; J3490

== ENCOUNTER 2024-07-31 10:34 | Emergency (ER) | payer BC, MEDICARE ==
[2024-07-31 11:07] VITALS: BP 133/61; PULSE 75
== END 2024-07-31 11:08 | disposition left against medical advice (07) ==
LOC: MW.ED 10:34
DX: S21.211D Laceration without foreign body of right back wall of thorax without penetration into thoracic cavity, subsequent encounter (principal); Z48.02 Encounter for removal of sutures; W25.XXXD Contact with sharp glass, subsequent encounter
CPT/HCPCS: 99281

== ENCOUNTER 2025-01-01 12:41 | Emergency (ER) | payer BC, MEDICARE ==
[2025-01-01] MEDS ORDERED: Sodium Chloride 0.9% 20 ML SDV IV PRN (12:58)
[2025-01-01] MEDS ORDERED: Sodium Chloride 0.9% 2.5 ML Syringe FLUSH PRN (12:58)
[2025-01-01] MEDS ORDERED: Sodium Chloride 0.9% 10 ML Syringe FLUSH PRN (12:58)
[2025-01-01 13:07] LABS: BASOPHILS ABSOLUTE AUTO 0.06 K/uL (0.00-0.20); BASOPHILS PERCENT AUTO 0.9 % (0.0-1.0); EOSINOPHILS ABSOLUTE AUTO 0.02 K/uL (0.00-0.45); EOSINOPHILS PERCENT AUTO 0.3 % (0.0-6.0); HEMATOCRIT 40.9 % (42.0-52.0); IMMATURE GRAN ABSOLUTE AUTO 0.03 K/uL (0.00-0.05); IMMATURE GRAN PERCENT AUTO 0.4 % (0.0-0.4); LYMPHOCYTES ABSOLUTE AUTO 0.33 K/uL (1.00-4.80); LYMPHOCYTES PERCENT AUTO 4.8 % (24.0-44.0); MEAN CORPUSCULAR HEMOGLOBIN 25.9 pg (28.0-32.0); MEAN CORPUSCULAR HGB CONC 31.8 g/dL (32.0-36.0); MEAN CORPUSCULAR VOLUME 81.5 fL (83.0-99.0); MEAN PLATELET VOLUME 8.6 fL (9.4-12.4); MONOCYTES ABSOLUTE AUTO 0.65 K/uL (0.00-0.80); MONOCYTES PERCENT AUTO 9.4 % (0.0-8.0); NEUTROPHILS ABSOLUTE AUTO 5.83 K/uL (1.80-7.70); NEUTROPHILS PERCENT AUTO 84.2 % (41.0-71.0); PLATELET COUNT,PLT 227 K/uL (150-400); RED BLOOD CELL COUNT 5.02 M/uL (4.52-5.90); WHITE BLOOD CELL COUNT,WBC 6.92 K/uL (3.9-11.3)
[2025-01-01] MEDS: Lidocaine 1% with EPINEPHrine 1:100,000 10 ML MDV INJECT ONE (13:22)
[2025-01-01] MEDS: Sodium Chloride 0.9% 1,000 ML IV ONE ×3 (13:22→20:28)
[2025-01-01 13:37] LABS: INR 0.95 (0.86-1.11)
[2025-01-01 13:42] LABS: A/G RATIO 1.5 (0.9-1.6); ALBUMIN 4.4 g/dL (3.4-5.0); BILIRUBIN TOTAL 1.3 mg/dL (0.2-1.0); CALCIUM 8.3 mg/dL (8.5-10.1); CARBON DIOXIDE,CO2 17.3 mmol/L (21.0-32.0); EST CRCL DRUG DOSING (CG) 76.2 mL/min; MAGNESIUM 2.1 mg/dL (1.8-2.4); POTASSIUM,K 3.8 mmol/L (3.5-5.1); PROTEIN TOTAL,TP 7.3 g/dL (6.4-8.2)
[2025-01-01 13:48] LABS: PTT,PARTIAL THROMBOPLSTIN TIME 22.1 SEC (23.9-30.7)
[2025-01-01] MEDS: Iopamidol 755 MG/ML 500 ML Multipack Bottle IVPUSH STA (14:08)
[2025-01-01 14:48] LABS: APPEARANCE,URINE CLEAR; BILIRUBIN,URINE NEGATIVE (NEGATIVE); COLOR,URINE YELLOW; GLUCOSE,URINE NEGATIVE (NEGATIVE); KETONES,URINE 15 mg/dL (NEGATIVE); LEUKOCYTE ESTERASE,URINE NEGATIVE (NEGATIVE); NITRITE,URINE NEGATIVE (NEGATIVE); OCCULT BLOOD,URINE SMALL (NEGATIVE); PH,URINE 5.5 (5.0-8.0); PROTEIN,URINE 30 mg/dL (NEGATIVE)
[2025-01-01 14:58] LABS: EPITHELIAL CELLS,URINE RARE (NONE-FEW); RBC,URINE NONE SEEN (0-2/HPF); WBC,URINE 0-1 (0-5/HPF)
[2025-01-01 14:59] LABS: BACTERIA,URINE FEW (NEGATIVE); MUCUS,URINE LIGHT (NONE-MOD)
[2025-01-01 21:19] VITALS: BP 123/82; PULSE 92
== END 2025-01-01 21:18 | disposition home or self-care (01) ==
LOC: MW.ED 12:41
DX: F10.920 Alcohol use, unspecified with intoxication, uncomplicated (principal); S05.12XA Contusion of eyeball and orbital tissues, left eye, initial encounter; J44.9 Chronic obstructive pulmonary disease, unspecified; Z79.899 Other long term (current) drug therapy; Z88.2 Allergy status to sulfonamides; Z88.5 Allergy status to narcotic agent; Z88.8 Allergy status to other drugs, medicaments and biological substances; W19.XXXA Unspecified fall, initial encounter
CPT/HCPCS: 36415; 70450; 70486; 71045; 71260; 72125; 72170; 73030; 73070; 74177; 80053; 80307; 81001; 82550; 83605; 83735; 84484; 85025; 85610; 85730; 87040; 93005; 96360; 96361; 99284; J7030; Q9967; 72128-26; 72131-26; 99283